=== PATIENT | male | born 1955 ===

== ENCOUNTER 2018-05-28 06:05 | Inpatient (IN) ==
[2018-05-28] MEDS ORDERED: *HR* Succinylcholine 200 MG/10 ML VIAL IVP ONE (06:17)
[2018-05-28] MEDS ORDERED: Ondansetron 4 MG/2 ML VIAL ONE (06:17)
[2018-05-28] MEDS ORDERED: *HR* Rocuronium Bromide 50 MG/5 ML VIAL ONE (06:17)
[2018-05-28] MEDS ORDERED: Lidocaine -MPF 4% 5 ML AMPUL ONE (06:17)
[2018-05-28] MEDS ORDERED: *HR* FentaNYL (PF) 100 MCG/2 ML VIAL ONE (06:17)
[2018-05-28] MEDS ORDERED: CeFAZolin Syr 2,000MG/20 ML 2,000 MG/20 ML SYRINGE IVPB ONE (06:17)
[2018-05-28] MEDS ORDERED: Lidocaine -MPF 2% 2 ML VIAL ONE ×2 (06:17→07:36)
[2018-05-28] MEDS ORDERED: Dexamethasone 4 MG/ML VIAL ONE (06:17)
[2018-05-28] MEDS ORDERED: Propofol 500 MG/50 ML INFUS..BTL ONE (06:18)
[2018-05-28] MEDS ORDERED: *HR* Remifentanil 1 MG VIAL IVP ONE ×2 (06:27→10:03)
[2018-05-28] MEDS ORDERED: Heparin 1,000 UNITS/500 mL 0 ML ONE (06:32)
[2018-05-28] MEDS ORDERED: *HR* Heparin 5,000 UNIT/ML VIAL ONE (06:33)
[2018-05-28] MEDS ORDERED: NiCARdipine 2.5 MG/10 ML Syringe IVPB ONE (06:39)
[2018-05-28] MEDS ORDERED: Nitroglycerin 25 MG/250 ML INFUS..BTL IVC ONE (06:39)
--- NOTE | 2018-05-28 07:14 | History & Physical Report ---
Date of Encounter: 05/28/18 Time of Encounter: 07:10 24 Hour HP Update - Instructions Instructions: If the History and Physical is less than 30 days old and was completed prior to A.M. admission and or procedure and has NOT been updated on calendar day of procedure please complete this update prior to performing procedure. - Update Patient reports changes in Medical Condition: No Changes in examination, assessment, or condition: No Changes in Medication: No Preop tests/diagnostics Reviewed: Yes Surgery Remains Indicated: Yes Consent for Planned Operative Procedure(s) Verified: Yes - Pre-Operative Checklist Preoperative Checklist Indicated: Yes Prophylactic Antibiotic Ordered: Yes (vancomycin due to risk of MRSA) Home Medications Include Beta Robin: No Beta Robin Taken Today (Day of Surgery): No Beta Robin Taken Yesterday (Day Prior to Surgery): No Is VTE Prophylaxis Indicated?: Yes
--- NOTE | 2018-05-28 07:20 | Anesthesia Evaluation PreOp ---
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 Se[address] Lopez - related to "blood clots in head" was on blood thinners; currently on ASA [last dose 05/28/2018 morning]) Other Medical History: Diabetes Type II Anesthesia History: No Prior Anesthetic Complications, Past Anesthesia (BAck surgery, Appy, R knee, Hernia, Saskia, L-thumb) Alcohol Use: occasionally Drug use: none, marijuana Medications and Allergies Ondansetron [Zofran ODT] 8 mg SL Q8H PRN #10 tab 04/18/18 [Rx] Allergy/AdvReac Type Severity Reaction Status Date / Time codeine AdvReac Itching Verified 02/03/15 13:43 morphine AdvReac Nausea Verified 02/03/15 13:42 - Meds/Allergy Pre-op Review Medications Reviewed: Yes Allergies Reviewed: Yes Beta Blockers on Current Med List: No Anesthesia Results - Labs Laboratory Tests 05/26/18 05/26/18 05/26/18 07:24 07:24 07:24 WBC 7.5 Hgb 13.4 Hct 41.2 PT 10.6 INR 0.9 APTT 34.5 Sodium Potassium Chloride Carbon Dioxide BUN Creatinine Est GFR (Non-Af Amer) Est Mean Plasma Glucose 163 Hemoglobin A1c 7.3 H 05/26/18 07:26 WBC Hgb Hct PT INR APTT Sodium 139 Potassium 4.0 Chloride 106 Carbon Dioxide 25 BUN 20 Creatinine 0.81 Est GFR (Non-Af Amer) > 60 Est Mean Plasma Glucose Hemoglobin A1c - Imaging EKG: report reviewed (60bpm - Sinus rhythm Borderline right axis deviation Electronically Signed On 04-20-2018 17:07:31 EST by Anton Rivera) Additional studies: Carotid dopplers 03/25/2018 Findings: Left proximal ICA has a severe, 60-79% stenosis. 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 Shira Gomez MD
[2018-05-28] MEDS ORDERED: Acetaminophen IV 1,000 MG/100 ML INFUS..BTL ONE (07:24)
[2018-05-28] MEDS ORDERED: EPHEDrine 50 MG/ML VIAL ONE (07:26)
[2018-05-28] MEDS ORDERED: Heparin 1,000 UNITS/500 mL 1,000 ML ONE (07:27)
[2018-05-28] MEDS ORDERED: Bupivacaine/EPI 1:200k 0.25%PF 10 ML VIAL INFILT ONE (07:27)
[2018-05-28] MEDS ORDERED: Vancomycin 1,000 MG VIAL ONE (07:28)
[2018-05-28] MEDS ORDERED: *HR* Midazolam HCl 2 MG/2 ML VIAL ONE (07:31)
[2018-05-28] MEDS: Ringers Solution, Lactated 1,000 ML IVC SCH ×2 (07:40→11:52)
[2018-05-28] MEDS ORDERED: Vancomycin 1,000 MG, Sodium Chloride IRRigation 1,000 ML IR ONE (07:45)
[2018-05-28] MEDS ORDERED: Bupivacaine-MPF 0.25% 10 ML VIAL ONE (07:51)
--- NOTE | 2018-05-28 10:42 | Operative Note ---
Date of procedure: 05/28/18 Pre-op diagnosis: Symptomatic 60-79% left internal carotid artery stenosis Post-op diagnosis: same Procedure: Left carotid endarterectomy with Hemashield patch angioplasty Complications: None Anesthesia: GETA Surgeon: Reji Velez Was there an mortgage assistant present: No Estimated blood loss (cc): 50 Specimen: Left carotid plaque Condition: stable Disposition: PACU Procedure in Detail: Indications: The patient is a 62-year-old male with a history of hypertension hyperlipidemia and carotid stenosis. The patient was experiencing left eye amaurosis fugax and was found have a symptomatic 60-79% left internal carotid artery stenosis. Endarterectomy was recommended to reduce his risk of subsequent cerebrovascular accident. Procedure: The patient was identified in the preoperative area. The risks, benefits, and alternatives of the procedure were discussed and all questions were answered. The patient was then taken to the operating room and placed in supine position on the operating table. After the induction of general endotracheal anesthesia, the patient was cleaned and draped in normal sterile fashion. A longitudinal incision was made anterior to the left sternocleidomastoid muscle. Hemostasis was obtained via electrocautery. Through a process of blunt, sharp, and electrocautery dissection, the platysma was traversed and the jugular vein was identified. The facial vein was dissected, clamped, divided and ligated with a 2-0 silk suture ligature. The jugular vein was retracted to expose the carotid bifurcation. The patient received 2000 units of heparin intravenously at this time. Proximal dissection of the common and external carotid arteries were performed circumferentially. Dissection of the internal carotid was performed circumferentially. Vessels loops were passed around the internal and external carotid and an umbilical tape was passed from the common carotid artery. The patient received additional 3000 units of heparin intravenously. After waiting adequate time for the heparin to circulate, the vessels were occluded and a longitudinal arteriotomy was made into the common carotid artery and extended into the internal carotid beyond the plaque. The plaque was long, extended distally and was heavily calcified. Vigorous pulsatile retrograde flow was noted from the internal carotid artery upon release of the vessel loop. Due to the rapid pulsatile retrograde flow, no shunt was placed. A dental Volin was then used to perform a standard endarterectomy. Proximal and distal endpoints were inspected. No elevated flaps were noted. Additional heparin was given th roughout the procedure to maintain adequate anticoagulation. A Hemashield patch was cut to fit the defect and sutured in place with running 6-0 Prolene. Prior to completing the closure, each vessel was flushed and then reoccluded. Heparinized saline was infused into the lumen. The patch was completed. Flow was restored in the external carotid artery, followed the common carotid artery, lastly the internal carotid artery was opened. A low resistance arterialized signal was present within the internal carotid artery beyond the patch. Thrombin and Gelfoam were used to aid in hemostasis. Meticulous hemostasis was obtained throughout the wound with electrocautery. Platelet rich and platelet poor plasma were infused into the wounds. The sternocleidomastoid was reapproximated with interrupted 3-0 Vicryl. Platelet rich and platelet poor plasma were infused into the wound. A TLS drain was brought through a separate stab incision and sutured in place with 0 silk suture. The platysma was reapproximated with running 3-0 Vicryl. Local anesthetic was infused in the skin. A 3-0 Monocryl was used to reapproximate the skin. A sterile dressing was applied. The patient was extubated, taken to the recovery room in stable condition.
[2018-05-28] MEDS ORDERED: Ondansetron 4 MG/2 ML VIAL IVP PRN (12:51)
[2018-05-28] MEDS ORDERED: D5% in Water 1,000 ML IVC PRN (12:51)
[2018-05-28] MEDS ORDERED: Naloxone 0.4 MG/ML INJ IVP PRN (12:51)
[2018-05-28] MEDS ORDERED: Acetaminophen 325 MG TABLET PO PRN (12:51)
[2018-05-28] MEDS ORDERED: *HR* Labetalol 20 MG/4 ML SYRINGE IVP PRN (12:51)
[2018-05-28] MEDS ORDERED: Dextrose Gel 15 GM/37.5 ML TUBE PO PRN ×2 (12:51)
[2018-05-28] MEDS ORDERED: ALPRAZolam 0.5 MG TABLET PO PRN (12:51)
[2018-05-28] MEDS ORDERED: 0.9 % Sodium Chloride 1,000 ML IVC SCH (12:51)
[2018-05-28] MEDS ORDERED: *HR* Dextrose 50 % in Water (Syg) 50 ML SYRINGE IVP PRN (12:51)
[2018-05-28] MEDS ORDERED: OXYCODONE Oral CONC 10 MG/0.5 ML ORAL.SYG SL PRN ×2 (12:51)
[2018-05-28] MEDS: Insulin LISPRO 300 UNITS/3 ML VIAL SQ SCH ×2 (13:25→16:36)
[2018-05-28] MEDS: *HR* Metoprolol 5 MG/5 ML VIAL IVP SCH ×3 (13:25→23:34)
[2018-05-28] MEDS: *HR* HYDROcodone/Acet 5/325 mg TABLET PO PRN (13:32)
[2018-05-28] MEDS ORDERED: Vancomycin 0 MG in D5% in Water 250 ML IVPB ONE (18:30)
--- NOTE | 2018-05-28 19:35 | Electrocardiograph Report ---
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
[2018-05-28] MEDS: *HR* OxyCODONE Immed Rel 5 MG TABLET PO PRN (20:23)
[2018-05-28] MEDS ORDERED: Latanoprost 2.5 ML BOTTLE BOTH EYES SCH (21:00)
[2018-05-28] MEDS ORDERED: Insulin LISPRO 300 UNITS/3 ML VIAL SQ SCH (21:00)
[2018-05-29] MEDS: *HR* Metoprolol 5 MG/5 ML VIAL IVP SCH (05:24)
[2018-05-29] MEDS: *HR* OxyCODONE Immed Rel 5 MG TABLET PO PRN ×2 (05:25→10:52)
[2018-05-29] MEDS ORDERED: *HR* Heparin 5,000 UNIT/ML VIAL SQ SCH (06:00)
--- NOTE | 2018-05-29 07:14 | Discharge Summary ---
Orders not resulted at time of discharge: Pending orders 05/27/18 Red Blood Cells [BBK] Routine 05/28/18 10:14 Surgical Pathology [PTH] Routine Date of Encounter: 05/29/18 Time of Encounter: 07:50 - Discharge Diagnosis (1) Carotid stenosis, left Priority: Primary Status: Chronic Comments: The patient is postoperative day #1 after a left carotid endarterectomy. His incision is healing well. He is tolerating a diet. He has no neurologic deficits. He will be discharged today. (2) Essential hypertension Priority: Secondary Status: Chronic (3) Mixed hyperlipidemia Priority: Secondary Status: Chronic (4) Type 2 diabetes mellitus with other circulatory complications Priority: Secondary Status: Chronic - Hospital Course Hospital course: Mr. Khalil is a 62 year old male with a history of hypertension, hyperlipidemia and diabetes. He also is found have symptomatic left internal carotid artery stenosis. He was admitted on 05/28/2018 and he underwent a left carotid endarterectomy. He tolerated the procedure well. On postoperative day #1 he was tolerating a diet and had no neurologic deficits. His incision was healing well. He was discharged on postoperative day #1 stable condition without complications. - Time Spent with Patient Total time spent providing and/or coordinating discharge services: - Discharge Medications Prescriptions: HYDROcodone/Acet 5/325 mg [Combes 5-325 mg] 1 tab PO Q6HR PRN 3 Days #12 tablet PRN Reason: Moderate Pain Home Medications: ALPRAZolam [Xanax 0.5 MG Tablet] 0.5 mg PO BID PRN 05/28/18 [History] Albuterol Sulfate [Ventolin Hfa] 2 puff PO Q6H PRN 05/28/18 [History] Cholecalciferol (Vitamin D3) [Vitamin D3] 4,000 unit PO 05/28/18 [History] Esomeprazole Magnesium [Nexium] 40 mg PO DAILY 05/28/18 [History] Gemfibrozil 600 mg PO BID 05/28/18 [History] Ibuprofen [Motrin] 600 mg PO TID PRN 05/28/18 [History] Latanoprost [Xalatan] 1 drop BOTH EYES HS 05/28/18 [History] Losartan Potassium 50 mg PO DAILY 05/28/18 [History] Metformin HCl [Glumetza] 1,000 mg PO BID 05/28/18 [History] Tramadol HCl/Acetaminophen [Ultracet Tablet] 1 each PO Q6H PRN 05/28/18 [History] Gemfibrozil [Lopid] 600 mg PO BIDWM tablet 05/29/18 [Rx] HYDROcodone/Acet 5/325 mg [Combes 5-325 mg] 1 tab PO Q6HR PRN 3 Days #12 tablet 05/29/18 [Rx] Allergies/Adverse Reactions: Allergy/AdvReac Type Severity Reaction Status Date / Time codeine AdvReac Itching Verified 02/03/15 13:43 morphine AdvReac Nausea Verified 02/03/15 13:42 Date of admission: 05/28/18 12:50 Primary care physician: Joselo Jerez MD Procedure(s) Performed: Left carotid endarterectomy Discharging clinician: Reji Velez Anticipated date of discharge: 05/29/18 Exam Vital Signs, Last 4 Hours Temp Pulse Resp BP Pulse Ox 05/29/18 04:06 98.5 F 61 18 121/68 95 General: Present: Conversant HEENT: Present: Trachea midline, Pupils equal Neck: Present: Other (Incision clean, dry and intact without erythema or drainage, no pulsatile mass, no hematoma.) Cardiac: Present: Reg Rate and Rhythm Lungs: Present: Normal Breath Sounds Neuro: Present: Alert and responsive, Motor nerves grossly intact, Sensory nerves grossly intact Abdomen: Present: Soft Vascular: Absent: Cyanosis, Edema Skin: Present: No rashes noted on visualized skin - Patient Status Disposition: Home, Self-Care Condition: Good Functional capacity at discharge: independent ambulation Overall status at discharge: patient is back to baseline - Discharge Instructions Follow Up With: Reji Velez MD [Partnered Physician] - 06/16/18 2:40 pm Joselo Jerez MD [Primary Care Provider] - 06/03/18 9:15 am Additional Instructions: May remove bandage and shower on 05/30/2018. Wash wound gently and pat to dry. No driving for [address] Velez at [phone] with questions or concerns. - Diet and Activity Activity: increase activity as tolerated Diet: advance to your usual diet
[2018-05-29 07:16] VITALS: BP 121/45
[2018-05-29] MEDS: Insulin LISPRO 300 UNITS/3 ML VIAL SQ SCH (07:33)
[2018-05-29] MEDS: *HR* HYDROcodone/Acet 5/325 mg TABLET PO PRN (07:39)
== END 2018-05-29 12:25 | disposition home or self-care (01) | DRG 39 ==
LOC: SAMDAY 06:05 → 2NNU 12:50
PROVIDERS: ADMIT Surgery; ATTEND Surgery

== ENCOUNTER 2019-01-14 09:48 | Inpatient (IN) ==
[2019-01-14] MEDS ORDERED: CeFAZolin Syr 2,000MG/20 ML 2,000 MG/20 ML SYRINGE IVPB ONE (10:05)
[2019-01-14] MEDS ORDERED: Ringers Solution, Lactated 1,000 ML IVC SCH (10:15)
[2019-01-14] MEDS ORDERED: Albuterol 2.5 MG/3 ML NEBULIZER IH ONE ×2 (10:38→12:16)
--- NOTE | 2019-01-14 10:56 | History & Physical Report ---
Date of Encounter: 01/14/19 Time of Encounter: 10:50 24 Hour HP Update - Instructions Instructions: If the History and Physical is less than 30 days old and was completed prior to A.M. admission and or procedure and has NOT been updated on calendar day of procedure please complete this update prior to performing procedure. - Update Patient reports changes in Medical Condition: No Changes in examination, assessment, or condition: No Changes in Medication: No Preop tests/diagnostics Reviewed: Yes Surgery Remains Indicated: Yes Consent for Planned Operative Procedure(s) Verified: Yes - Pre-Operative Checklist Preoperative Checklist Indicated: Yes Prophylactic Antibiotic Ordered: Yes (surgical prophylaxis with risk of MRSA) Home Medications Include Beta Robin: No Beta Robin Taken Today (Day of Surgery): No Beta Robin Taken Yesterday (Day Prior to Surgery): No Is VTE Prophylaxis Indicated?: Yes
[2019-01-14] MEDS ORDERED: Vancomycin 1,000 MG, Sodium Chloride IRRigation 1,000 ML IR ONE (12:00)
--- NOTE | 2019-01-14 12:04 | Anesthesia Evaluation PreOp ---
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 in 2015 no deficits and now s/p L CEA), Other (anxiety, depression) Other Medical History: Diabetes Type II, GERD Anesthesia History: No Prior Anesthetic Complications, Past Anesthesia (BAck surgery, Appy, R knee, Hernia, Saskia, L-thumb, L CEA) Alcohol Use: none Drug use: none Medications and Allergies ALPRAZolam [Xanax 0.5 MG Tablet] 0.5 mg PO BID PRN 05/28/18 [History] Albuterol Sulfate [Ventolin Hfa] 2 puff PO Q6H PRN 05/28/18 [History] Esomeprazole Magnesium [Nexium] 40 mg PO DAILY 05/28/18 [History] Metformin HCl [Glumetza] 1,000 mg PO BID 05/28/18 [History] Tramadol HCl/Acetaminophen [Ultracet Tablet] 1 tab PO BID PRN 05/28/18 [History] Gemfibrozil [Lopid] 600 mg PO BIDWM tablet 05/29/18 [Rx] Benzonatate [Tessalon] 100 mg PO TID PRN #12 capsule 01/10/19 [Rx] Aspirin [Adult Aspirin] 81 mg PO DAILY 01/14/19 [History] Cholecalciferol (D-3) [Vitamin D] 5,000 unit PO DAILY 01/14/19 [History] Losartan Potassium [Cozaar] 50 mg PO DAILY 01/14/19 [History] Rosuvastatin [Crestor] 40 mg PO HS 01/14/19 [History] Allergy/AdvReac Type Severity Reaction Status Date / Time codeine AdvReac Itching Verified 01/14/19 10:22 morphine AdvReac Nausea Verified 01/14/19 10:22 - Meds/Allergy Pre-op Review Medications Reviewed: Yes Allergies Reviewed: Yes Beta Blockers on Current Med List: No Anesthesia Results - Labs Laboratory Tests 01/12/19 01/12/19 01/12/19 15:26 15:26 15:26 WBC 9.0 Hgb 12.6 L Hct 40.5 Plt Count 402 H PT 11.9 INR 1.0 APTT 35.5 Sodium 142 Potassium 3.5 Chloride 103 Carbon Dioxide 29 BUN 22 Creatinine 0.78 Est GFR (Non-Af Amer) > 60 - Imaging EKG: report reviewed Additional studies: stress 03/2018 Impression: Exercise ECG is negative for ischemia. Chest discomfort reported during exercise. Gated EF = 74%. Perfusion imaging was negative for ischemia or infarct. 12/2018 CT/CT angio abdomen pelvis IMPRESSION: 1. 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 Associated hematoma surrounding the pseudoaneurysm measuring 2.7 x 3.6 x 2.6 cm. Vascular surgery consultation recommended. 2. Moderate aortoiliac atherosclerotic disease. No other acute vascular pathology. 3. Spontaneous portosystemic shunt as outlined above. This appears relatively stable compared to previous imaging. 4. Otherwise stable CT of the abdomen and pelvis. Anesthesia Exam Vital Signs/O2 Sat/Glucose, Most Recent Temp Pulse Resp BP Pulse Ox 98.2 F 92 18 125/84 95 01/14/19 10:20 01/14/19 10:20 01/14/19 10:20 01/14/19 10:20 01/14/19 10:20 Blood Glucose* 136 Weight: 84 kg NPO (# of Hours): > 8 hr - HEENT Pupil (Motor): Pupils equal Mallampati: II Teeth: Edentulous Oral Opening: Greater than 3 - POWDER CORE TESTER LOC: Oriented - Cardiac Rhythm: Regular Murmur: None - Pulmonary Breath Sounds: bilateral Clear Respiratory Effort: Symmetrical Anesthesia Assess/Plan ASA Score: 3 Level of consciousness: Cooperative, Oriented Anesthetic Plan: General Monitoring Plan: Standard Monitors Recovery Plan: PACU
[2019-01-14] MEDS ORDERED: *HR* OxyCODONE Immed Rel 5 MG TABLET PO PRN (12:16)
[2019-01-14] MEDS ORDERED: *HR* Promethazine 25 MG/ML VIAL IVP PRN ×2 (12:16→16:30)
[2019-01-14] MEDS ORDERED: *HR* HYDROmorphone (PF) 1 MG/ML SYRINGE IVP PRN (12:16)
[2019-01-14] MEDS ORDERED: Ondansetron 4 MG/2 ML VIAL IVP ONE (12:16)
[2019-01-14] MEDS ORDERED: *HR* Labetalol 20 MG/4 ML SYRINGE IVP PRN (12:16)
[2019-01-14] MEDS ORDERED: Acetaminophen IV 1,000 MG/100 ML INFUS..BTL IVPB ONE (12:17)
[2019-01-14] MEDS ORDERED: Famotidine 20 MG/2 ML VIAL IVP ONE (12:17)
[2019-01-14] MEDS ORDERED: Heparin 1,000 UNITS/500 mL 1,000 ML ONE (13:42)
[2019-01-14] MEDS ORDERED: Bupivacaine-MPF 0.25% 10 ML VIAL ONE (13:42)
[2019-01-14] MEDS ORDERED: Isovue-300 150 ML INFUS..BTL ONE (13:43)
[2019-01-14] MEDS ORDERED: *HR* Propofol 200 MG/20 ML VIAL IVP ONE (14:36)
[2019-01-14] MEDS ORDERED: Lidocaine -MPF 2% 2 ML VIAL ONE (14:36)
[2019-01-14] MEDS ORDERED: *HR* FentaNYL (PF) 100 MCG/2 ML VIAL ONE (14:36)
[2019-01-14] MEDS ORDERED: *HR* Rocuronium Bromide 50 MG/5 ML VIAL ONE (14:36)
[2019-01-14] MEDS ORDERED: *HR* Midazolam HCl 2 MG/2 ML VIAL ONE (14:36)
[2019-01-14] MEDS ORDERED: Ondansetron 4 MG/2 ML VIAL ONE (15:13)
[2019-01-14] MEDS ORDERED: Dexamethasone 4 MG/ML VIAL ONE (15:13)
--- NOTE | 2019-01-14 15:27 | Operative Note ---
Date of procedure: 01/14/19 Pre-op diagnosis: Symptomatic right common iliac artery aneurysm Post-op diagnosis: same Procedure: 1. Abdominal aortogram and right iliac artery angiogram 2. Percutaneous endovascular repair of right common iliac artery aneurysm with 8 x 59 mm atrium covered stent, postdilated with 10 x 40 mm balloon. Complications: None Anesthesia: GETA Surgeon: Reji Velez Was there an temporary administrative assistant present: No Estimated blood loss (cc): 1 Specimen: None Condition: stable Disposition: PACU Procedure in Detail: Indications: The patient is a 63-year-old male with a history of carotid stenosis, hypertension, hyperlipidemia and diabetes. The patient presented to the emergency room recently with complaints of pelvic pain. He reported this pain began approximately 1 month ago. Patient was found to have a right common iliac artery pseudoaneurysm with the hematoma. Repair was recommended to reduce his risk of hemorrhage and . Please: The patient was identified in the preoperative area. The risks, benefits and alternatives were discussed and all questions were answered. He expressed understanding and wished to proceed. The patient was then taken to the operating room. He was placed in the supine position on the operative table. After the induction of general endotracheal anesthesia he was cleaned and draped in normal sterile fashion. Under ultrasound guidance, percutaneous access of the right common femoral artery was obtained with a micropuncture needle. A microwire was advanced through the needle. The micropuncture needle was removed. A 4-British micropuncture sheath was advanced over the wire. The microwire was removed.. A Bentson wire was advanced through the needle into the infrarenal aorta under fluoroscopic view. The needle was exchanged for a 6-British sheath. An arteriogram was then performed through the sheath. This revealed a pseudoaneurysm with active bleeding arising from the right common iliac artery. The Bentson wire was placed with a Magic torque wire. Another angiogram was performed in order to size the artery. An 8 x 59 mm atrium covered stent was advanced over the wire. It was then deployed across the common iliac artery over the pseudoaneurysm. An angiogram was then performed through the sheath which revealed continued extravasation of the pseudoaneurysm. A 10 x 40 mm balloon was advanced over the wire. The covered stent was postdilated to 10 mm. The balloon was removed and a completion angiogram revealed resolution of the pseudoaneurysm and appropriate wall apposition of the stent. The sheath was removed and a Starclose device was deployed to aid in hemostasis. Additional hemostasis was obtained with direct pressure. A sterile dressing was applied. The patient was extubated and was taken to the recovery room in stable condition.
--- NOTE | 2019-01-14 15:52 | Anesthesia Evaluation Post Op ---
Date of Encounter: 01/14/19 Time of Encounter: 15:51 - Vital Signs Vital Signs: Vital Signs/O2 Sat, Most Current Temp Pulse Resp BP Pulse Ox 99.7 F H 88 20 138/89 96 01/14/19 15:22 01/14/19 15:42 01/14/19 15:42 01/14/19 15:42 01/14/19 15:42 - Lungs Lungs: Clear Ascult./Percussion - Airway Airway: Non-obstructed - Cardiovascular Regular Rate - Mental Status Mental Status: Alert & Oriented, Answers Appropriately - Pain Pain Scale: 0 Pain Scale used: Numeric (1 - 10) - Nausea Vomiting Nausea Vomiting: Not Present - Hydration Hydration: Ice chips, Has not voided - Discharge PostOp Status: Transfer Patient to floor
[2019-01-14] MEDS ORDERED: Dextrose Gel 15 GM/37.5 ML TUBE PO PRN ×2 (16:30)
[2019-01-14] MEDS ORDERED: Naloxone 0.4 MG/ML INJ IVP PRN (16:30)
[2019-01-14] MEDS ORDERED: Insulin LISPRO 300 UNITS/3 ML VIAL SQ SCH ×2 (16:30→21:00)
[2019-01-14] MEDS ORDERED: Benzonatate 100 MG CAPSULE PO PRN (16:30)
[2019-01-14] MEDS ORDERED: traMADol 50 MG TABLET PO PRN (16:30)
[2019-01-14] MEDS ORDERED: D5% in Water 1,000 ML IVC PRN (16:30)
[2019-01-14] MEDS ORDERED: *HR* Dextrose 50 % in Water (Syg) 50 ML SYRINGE IVP PRN (16:30)
[2019-01-14] MEDS: ALPRAZolam 0.5 MG TABLET PO PRN (20:50)
[2019-01-15] MEDS ORDERED: *HR* Heparin 5,000 UNIT/ML VIAL SQ SCH (06:00)
[2019-01-15 06:31] LABS: Basophils % 0.2 %; Eosinophils % 0.2 %; Hematocrit 36.5 % (37.5-50.1); Hemoglobin 11.5 g/dL (12.9-16.9); Immature Granulocytes % 0.7 % (0-4); Lymphocytes # 1.6 K/mcL (0.6-4.6); Lymphocytes % 12.9 %; Mean Corpuscular HGB Conc 31.5 g/dL (31.6-35.5); Mean Corpuscular Hemoglobin 25.3 pg (28.0-33.3); Mean Corpuscular Volume 80.4 fL (83.0-100.0); Mean Platelet Volume 10.8 fL (9.4-12.4); Monocytes # 0.5 K/mcL (0.0-1.3); Monocytes % 4.4 %; Neutrophils # 10.1 K/mcL (1.6-8.9); Platelet Count 359 K/mcL (140-400); Red Blood Count 4.54 M/mcL (4.19-5.50); Red Cell Distribution Width 13.8 % (11.5-14.5); Segmented Neutrophils % 81.6 %; White Blood Count 12.3 K/mcL (4.3-11.1)
[2019-01-15 06:54] LABS: BUN/Creatinine Ratio 21 (6-26); Blood Urea Nitrogen 14 mg/dL (8-23); Calcium 9.1 mg/dL (8.6-10.3); Carbon Dioxide 29 mEq/L (23-29); Chloride 99 mEq/L (98-107); Glucose 144 mg/dL (70-105); Osmolality,Calculated 291 (280-300); Potassium 3.7 mEq/L (3.5-5.1); Sodium 139 mEq/L (136-145); eGFR For African Americans > 60 (> 60); eGFR For Non-African Americans > 60 (> 60)
--- NOTE | 2019-01-15 07:44 | Discharge Summary ---
Date of Encounter: 01/15/19 Time of Encounter: 07:50 - Discharge Diagnosis (1) Iliac artery pseudoaneurysm Priority: Primary Status: Inactive Comments: The patient is postoperative day #1 after endovascular repair of a ruptured right common iliac artery aneurysm. He reports his pain is resolved. His wound revealed no evidence of hematoma. His palpable pedal pulses. He will be discharged today. (2) Essential hypertension Priority: Secondary Status: Chronic Comments: The patient was counseled regarding atherosclerotic risk factor reduction. (3) Mixed hyperlipidemia Priority: Secondary Status: Chronic (4) Type 2 diabetes mellitus with other circulatory complications Priority: Secondary Status: Chronic (5) Carotid stenosis, left Priority: Secondary Status: Chronic - Hospital Course Hospital course: Mr. Khalil is a 63 year old male with a history of hypertension, hyp erlipidemia and diabetes who was found to have a ruptured right common iliac artery aneurysm with a resultant hematoma. The patient was admitted and taken to the operating room where he underwent endovascular repair of the right common iliac artery aneurysm. He tolerated the procedure well. Will certainly #1 is healing well. Symptoms are completely resolved. He was discharged on postoperative day #1 in stable condition without complications. - Time Spent with Patient Total time spent providing and/or coordinating discharge services: - Discharge Medications Prescriptions: New Clopidogrel [Plavix] 75 mg PO DAILY #30 tablet Continued Albuterol Sulfate [Ventolin Hfa] 2 puff PO Q6H PRN PRN Reason: Shortness Of Breath ALPRAZolam [Xanax 0.5 MG Tablet] 0.5 mg PO BID PRN PRN Reason: Anxiety Esomeprazole Magnesium [Nexium] 40 mg PO DAILY Metformin HCl [Glumetza] 1,000 mg PO BID Tramadol HCl/Acetaminophen [Ultracet Tablet] 1 tab PO BID PRN PRN Reason: Mild To Moderate Pain Gemfibrozil [Lopid] 600 mg PO BIDWM tablet Benzonatate [Tessalon] 100 mg PO TID PRN #12 capsule PRN Reason: Cough Aspirin [Adult Aspirin] 81 mg PO DAILY Cholecalciferol (D-3) [Vitamin D] 5,000 unit PO DAILY Losartan Potassium [Cozaar] 50 mg PO DAILY Rosuvastatin [Crestor] 40 mg PO HS Home Medications: ALPRAZolam [Xanax 0.5 MG Tablet] 0.5 mg PO BID PRN 05/28/18 [History] Albuterol Sulfate [Ventolin Hfa] 2 puff PO Q6H PRN 05/28/18 [History] Esomeprazole Magnesium [Nexium] 40 mg PO DAILY 05/28/18 [History] Metformin HCl [Glumetza] 1,000 mg PO BID 05/28/18 [History] Tramadol HCl/Acetaminophen [Ultracet Tablet] 1 tab PO BID PRN 05/28/18 [History] Gemfibrozil [Lopid] 600 mg PO BIDWM tablet 05/29/18 [Rx] Benzonatate [Tessalon] 100 mg PO TID PRN #12 capsule 01/10/19 [Rx] Aspirin [Adult Aspirin] 81 mg PO DAILY 01/14/19 [History] Cholecalciferol (D-3) [Vitamin D] 5,000 unit PO DAILY 01/14/19 [History] Losartan Potassium [Cozaar] 50 mg PO DAILY 01/14/19 [History] Rosuvastatin [Crestor] 40 mg PO HS 01/14/19 [History] Clopidogrel [Plavix] 75 mg PO DAILY #30 tablet 01/15/19 [Rx] Allergies/Adverse Reactions: Allergy/AdvReac Type Severity Reaction Status Date / Time codeine AdvReac Itching Verified 01/14/19 10:22 morphine AdvReac Nausea Verified 01/14/19 10:22 Date of admission: 01/14/19 16:21 Primary care physician: Joselo Jerez MD Consults: 01/14/19 17:27 Consult to Nutrition [CONS] Routine Comment: Consulting Provider: NUTRITION Reason for Dietary Consult: MST Score Procedure(s) Performed: Endograft repair of ruptured right iliac artery aneurysm Discharging clinician: Reji Velez Anticipated date of discharge: 01/15/19 Exam Vital Signs, Last 4 Hours Temp Pulse Resp BP Pulse Ox 01/15/19 03:58 98.5 F 82 16 129/85 92 General: Present: Conversant HEENT: Present: Pupils equal Cardiac: Present: Reg Rate and Rhythm Lungs: Present: Normal Breath Sounds Neuro: Present: Alert and responsive, No focal deficits noted Abdomen: Present: Soft, Non-tender Vascular: Present: Normal capillary refill, Pulse, normal, Other (No hematoma). Absent: Cyanosis, Edema Skin: Present: No rashes noted on visualized skin - Patient Status Disposition: Home, Self-Care Condition: Good Functional capacity at discharge: independent ambulation Overall status at discharge: patient is back to baseline - Discharge Instructions Instructions: Clopidogrel (By mouth), Angiogram (DC), Peripheral Vascular Disorders (DC) Follow Up With: Reji Velez MD [Partnered Physician] - 02/15/19 9:50 am Joselo Jerez MD [Primary Care Provider] - 01/19/19 9:15 am (Appointment for 01-15-19 @ 08 has been cancelled) Additional Instructions: RISK FACTORS: STOP SMOKING: If you smoke, STOP. Smoking or tobacco use significantly increases your risk of vascular disease because nicotine causes the arteries to narrow or constrict. It also causes fats to stick to the artery. Your chances of having vascular problems are greatly increased if you continue to smoke. For more information, call the education line for smoking cessation 3-564-QCTUPZO EAT A LOW FAT/CHOLESTEROL/SODIUM DIET: This diet may help reduce your chances of having vascular problems. LIFTING: Avoid lifting anything more than 10 pounds for 5-7 days Prior to straining, laughing, sneezing and/or coughing, apply manual pressure directly over insertion site. ACTIVITY: You may walk or climb stairs as tolerated You can resume sexual activity as tolerated In general, you are encouraged to engage in physical activity, such as walking, 20 minutes twice a day. BATHING Do not submerge the site into water (bath tub, hot tub, swimming pool) for 1 week. This can be a source for infection into the blood stream. You may shower after 24 hours SITE CARE: After 24 hours, you may remove the dressing and leave the site open to air. Keep the site clean and dry. Clean gently and pat dry. You can expect bruising and tenderness that gradually resolve within a week or two. Return to work as instructed per your physician Resume driving as instructed per physician Keep all scheduled follow up appointments Resume medications as instructed IMPORTANT: If prescribed a Platelet Aggregation Inhibitor such as, Plavix, Brilinta or Effient: Duration of therapy is minimum 3 months These medications are often used in combination with Aspirin Never discontinue unless advised by your Vascular Surgeon. STROKE (CVA) Risk factors for a stroke are: Age, cigarette smoking, diabetes, excessive alcohol consumption, family history, high blood pressure, overweight, physical inactivity, prior stroke, heart attack, carotid artery disease or other artery disease. Warning signs: Sudden numbness or weakness of the face, arm or leg; especially on one side of the body, sudden confusion, trouble speaking or understanding, sudden trouble seeing in one eye, sudden trouble walking, dizziness, loss of balance or coordination, sudden severe headache with no cause. Call 911 or go to the Emergency Room. BLEEDING: Although the risk of bleeding is minimal, it can happen. If you have any bleeding from the site, apply firm pressure above the puncture site for 10-15 minutes. If the bleeding does not stop, continue manual pressure and call 911 Contact your physician if: You develop a fever greater than 101 degrees Fahrenheit Your site becomes reddened or has any drainage You have an increase in pain or burning at the site or if a large knot forms at the site. - Diet and Activity Activity: increase activity as tolerated Diet: advance to your usual diet
[2019-01-15 08:15] VITALS: BP 126/82
[2019-01-15] MEDS ORDERED: Aspirin Enteric Coated 81 MG Tablet PO SCH (09:00)
[2019-01-15] MEDS ORDERED: Cholecalciferol (D-3) 1,000 UNIT (25MCG) TABLET PO SCH (09:00)
[2019-01-15] MEDS: ALPRAZolam 0.5 MG TABLET PO PRN (09:43)
== END 2019-01-15 10:31 | disposition home or self-care (01) | DRG 272 ==
LOC: SAMDAY 09:48 → 2NENU 16:21
PROVIDERS: ADMIT Surgery; ATTEND Surgery

== ENCOUNTER 2019-01-28 11:56 | Inpatient (IN) ==
[2019-01-28] MEDS ORDERED: 0.9 % Sodium Chloride 1,000 ML IVC ONE (12:15)
--- NOTE | 2019-01-28 12:58 | Emergency Department Note ---
Disposition Clinical Impression: Salmonella bacteremia Chest pain Qualifiers: Chest pain type: unspecified Qualified Code(s): R07.9 - Chest pain, unspecified Anemia Qualifiers: Anemia type: unspecified type Qualified Code(s): D64.9 - Anemia, unspecified Disposition: Admitted As Inpatient Condition: Fair Time of Disposition: 14:39 General Adult HPI - General Chief complaint: ED Chest Pain Stated complaint: Chest Pain Time Seen by Provider: 01/28/19 12:07 Source: patient, family, EMS Limitations: no limitations Nursing Notes Reviewed: Yes Vital Signs Reviewed: Yes - History of Present Illness HPI Narrative: Patient presents per EMS and I did see the patient immediately upon arrival and I did speak with the paramedics and the patient is here with chest pain which began at about 10:15 a day and is intermittent lasting 2-3 minutes at a time and sharp and is worse with exertion and associated with diaphoresis and dyspnea. tells me that the patient was recently seen here and I did review his previous record was diagnosed with salmonella in the blood and discharged on Bactrim and the patient today continues to complain of diarrhea. No vomiting. Does have blood in the stool. No fever. No pain or swelling of the lower extremities but said he is unsteady on his feet. Paramedics that he was very tachycardic. Social history: Stopped smoking 1996, no alcohol or drugs Pain Scale: 9 - Related Data Home Medications Medication Instructions Recorded Confirmed ALPRAZolam [Xanax 0.5 MG Tablet] 0.5 mg PO BID PRN 05/28/18 01/28/19 Albuterol Sulfate [Ventolin Hfa] 2 puff PO Q6H PRN 05/28/18 01/28/19 Esomeprazole Magnesium [Nexium] 40 mg PO DAILY 05/28/18 01/28/19 Metformin HCl [Glumetza] 1,000 mg PO BID 05/28/18 01/28/19 Tramadol HCl/Acetaminophen 1 tab PO BID PRN 05/28/18 01/28/19 [Ultracet Tablet] Aspirin [Adult Aspirin] 81 mg PO DAILY 01/14/19 01/28/19 Cholecalciferol (D-3) [Vitamin D] 5,000 unit PO DAILY 01/14/19 01/28/19 Losartan Potassium [Cozaar] 50 mg PO DAILY 01/14/19 01/28/19 Rosuvastatin [Crestor] 40 mg PO HS 01/14/19 01/28/19 Ondansetron HCl [Zofran] 4 mg PO Q8HR PRN 01/28/19 01/28/19 Previous Rx's Medication Instructions Recorded Gemfibrozil [Lopid] 600 mg PO BIDWM tablet 05/29/18 Benzonatate [Tessalon] 100 mg PO TID PRN #12 capsule 01/10/19 Clopidogrel [Plavix] 75 mg PO DAILY #30 tablet 01/15/19 Allergies Allergy/AdvReac Type Severity Reaction Status Date / Time codeine AdvReac Itching Verified 01/26/19 18:06 morphine AdvReac Nausea Verified 01/26/19 18:06 All systems ED: reviewed and negative except as stated. Past Medical History - Past Medical History Medical history: Reports: arthritis, CVA, DVT, diabetes, GERD, glaucoma, hypertension Surgical history: Reports: appendectomy Psychiatric history: Reports: anxiety, depression - Social History Smoking Status: Former smoker Smokeless Tobacco Status: No Alcohol use: Reports: none Drug use: Reports: none Physical Exam CONSTITUTIONAL: Alert and oriented X3, well-nourished, well appearing, in no apparent distress HEAD: Normocephalic; atraumatic. EYES: PERRL, no scleral icterus. NOSE: The nose is normal in appearance without rhinorrhea RESP: Normal chest excursion with respiration; breath sounds clear and equal bilaterally; no wheezes, rhonchi, or rales CARD: Regular rhythm, without murmurs, rub or gallop ABD: Non-distended; mild bilateral lower abdominal discomfort with palpation but soft without rigidity, rebound, guarding. Normal appearance. The upper abdomen is non-tender, soft,without rigidity, rebound or guarding SKIN: Normal for age and race; warm and dry; no apparent lesions EXTREMITIES: Pulses are 2 plus and equal times 4 extremities, no peripheral edema or calf muscle pain. - General Limitations: no limitations General appearance: alert Course Vital Signs Temperature 98.3 F 01/28/19 12:00 Pulse Rate 126 01/28/19 12:00 Respiratory Rate 20 01/28/19 12:00 Blood Pressure 133/93 01/28/19 12:00 O2 Sat by Pulse Oximetry 100 01/28/19 12:00 Temperature 98.3 F 01/28/19 12:00 Pulse Rate 105 01/28/19 16:00 Respiratory Rate 18 01/28/19 16:00 Blood Pressure 135/91 01/28/19 16:00 O2 Sat by Pulse Oximetry 98 01/28/19 16:00 Oxygen Delivery Oxygen Delivery Room Air Medical Decision Making - MDM Narrative Medical decision making narrative: Patient does have Salmonella bacteremia and I did write for IV fluids because he is significantly tachycardic and did an EKG which shows sinus tachycardia with a rate of 118 bpm with some nonspecific ST changes and the patient will be admitted and labs including troponin are pending. Chest x-rays negative. 1 L IV fluid bolus. I did go back and check on the patient and his symptoms have improved but not resolved. 1257 Did review the patient's test results he does have anemia which is a 3 g drop from January 25 so I did write for type and screen, I did speak with Dr. Garza from infectious disease who recommends Rocephin 2 g IV every 24 hours I did turn in the consult as well as I also wrote for the Rocephin. The hospitalist is amalia Also cardio was paged but the second EKG with continued chest pain shows improvement in the tachycardia and shows sinus tachycardia with rate of [address] change similar to previous EKG but without acute ST elevation or arrhythmia. Cardiology will be consulted. 1405 I did speak with Dr. Alford from cardiology who will consult and agrees with evaluation for pulmonary embolism, dissection as well as further evaluation of the right iliac artery repair and this will be a CTA of the chest abdomen and pelvis and the patient will be admitted. Hospitalist has been paged [phone] I did review the results of the CT scan which did not show any bleeding from the iliac artery aneurysm repair, no pulmonary embolism or dissection. Dr. Alford who did recommend I contacted vascular and I will call Dr. Cuenca right now. No change in management at this time based on CT result findings. 1703 I did speak with Dr. Tariq and he does know the patient well and we discussed the findings and hemoglobin and the CT results and he feels he does not need consult at this time but is happy to help out if the inpatient team like to consult. 1709 - Medical Records Medical records reviewed: Yes I reviewed the patient's medical records. - Lab Data Lab results reviewed: Yes I reviewed the patient's lab results. Result diagrams: 01/28/19 12:46 01/28/19 12:46 Lab Results 01/28/19 01/28/19 01/28/19 Range/Units 12:37 12:46 12:46 WBC (4.3-11.1) K/mcL RBC (4.19-5.50) M/mcL Hgb (12.9-16.9) g/dL Hct (37.5-50.1) % MCV (83.0-100.0) fL MCH (28.0-33.3) pg MCHC (31.6-35.5) g/dL RDW (11.5-14.5) % Plt Count (140-400) K/mcL MPV (9.4-12.4) fL Immature Gran % (0-4) % Seg Neutrophils % % Lymphocytes % % Monocytes % % Eosinophils % % Basophils % % Neutrophils # (1.6-8.9) K/mcL Lymphocytes # (0.6-4.6) K/mcL Monocytes # (0.0-1.3) K/mcL Eosinophils # (0.0-0.6) K/mcL Basophils # (0.0-0.2) K/mcL Sodium (136-145) mEq/L Potassium (3.5-5.1) mEq/L Chloride (98-107) mEq/L Carbon Dioxide (23-29) mEq/L BUN (8-23) mg/dL Creatinine (0.70-1.30) mg/dL Est GFR ( Amer) (> 60) Est GFR (Non-Af Amer) (> 60) BUN/Creatinine Ratio (6-26) Glucose (70-105) mg/dL Calculated Osmolality (280-300) Lactic Acid 1.9 (0.5-2.2) mmol/L Calcium (8.6-10.3) mg/dL Total Bilirubin 0.4 (0.3-1.0) mg/dL Direct Bilirubin 0.1 (0.0-0.2) mg/dL Indirect Bilirubin 0.3 (0.0-1.2) mg/dL AST 21 (13-39) Units/L ALT 29 (7-52) Units/L Alkaline Phosphatase 96 (34-104) Units/L Troponin I (< 0.04) ng/mL Serum Total Protein 7.4 (6.4-8.9) g/dL Albumin 4.1 (3.5-5.7) g/dL Globulin 3.3 (2.4-3.5) g/dL Albumin/Globulin Ratio 1.2 (1.1-2.2) Lipase 38 (11-82) Units/L Urine Color (Yellow) Urine Clarity (Clear) Urine pH (5.0-8.0) pH Units Ur Specific [place] (1.010-1.025) Urine Protein (Neg-Trace) mg/dL Urine Glucose (UA) (Normal) mg/dL Urine Ketones (Negative) mg/dL Urine Blood (Negative) Urine Nitrite (Negative) Urine Bilirubin (Negative) Urine Urobilinogen (Normal) mg/dL Ur Leukocyte Esterase (Negative) Ur Culture Indicated? (NO) Blood Type Antibody Screen 01/28/19 01/28/19 01/28/19 Range/Units 12:46 12:46 14:29 WBC 11.0 (4.3-11.1) K/mcL RBC 3.70 L (4.19-5.50) M/mcL Hgb 9.4 L D (12.9-16.9) g/dL Hct 29.6 L (37.5-50.1) % MCV 80.0 L (83.0-100.0) fL MCH 25.4 L (28.0-33.3) pg MCHC 31.8 (31.6-35.5) g/dL RDW 14.5 (11.5-14.5) % Plt Count 358 (140-400) K/mcL MPV 10.7 (9.4-12.4) fL Immature Gran % 0.5 (0-4) % Seg Neutrophils % 79.8 % Lymphocytes % 13.7 % Monocytes % 5.3 % Eosinophils % 0.4 % Basophils % 0.3 % Neutrophils # 8.8 (1.6-8.9) K/mcL Lymphocytes # 1.5 (0.6-4.6) K/mcL Monocytes # 0.6 (0.0-1.3) K/mcL Eosinophils # 0.0 (0.0-0.6) K/mcL Basophils # 0.0 (0.0-0.2) K/mcL Sodium 135 L (136-145) mEq/L Potassium 4.1 (3.5-5.1) mEq/L Chloride 101 (98-107) mEq/L Carbon Dioxide 24 (23-29) mEq/L BUN 25 H (8-23) mg/dL Creatinine 0.87 (0.70-1.30) mg/dL Est GFR ( Amer) > 60 (> 60) Est GFR (Non-Af Amer) > 60 (> 60) BUN/Creatinine Ratio 29 H (6-26) Glucose 158 H (70-105) mg/dL Calculated Osmolality 288 (280-300) Lactic Acid (0.5-2.2) mmol/L Calcium 9.4 (8.6-10.3) mg/dL Total Bilirubin (0.3-1.0) mg/dL Direct Bilirubin (0.0-0.2) mg/dL Indirect Bilirubin (0.0-1.2) mg/dL AST (13-39) Units/L ALT (7-52) Units/L Alkaline Phosphatase (34-104) Units/L Troponin I < 0.03 (< 0.04) ng/mL Serum Total Protein (6.4-8.9) g/dL Albumin (3.5-5.7) g/dL Globulin (2.4-3.5) g/dL Albumin/Globulin Ratio (1.1-2.2) Lipase (11-82) Units/L Urine Color Yellow (Yellow) Urine Clarity Clear (Clear) Urine pH 6.0 (5.0-8.0) pH Units Ur Specific [place] 1.029 H (1.010-1.025) Urine Protein Trace (Neg-Trace) mg/dL Urine Glucose (UA) Normal (Normal) mg/dL Urine Ketones Negative (Negative) mg/dL Urine Blood Negative (Negative) Urine Nitrite Negative (Negative) Urine Bilirubin Negative (Negative) Urine Urobilinogen Normal (Normal) mg/dL Ur Leukocyte Esterase Negative (Negative) Ur Culture Indicated? NO (NO) Blood Type Antibody Screen 01/28/19 Range/Units 14:30 WBC (4.3-11.1) K/mcL RBC (4.19-5.50) M/mcL Hgb (12.9-16.9) g/dL Hct (37.5-50.1) % MCV (83.0-100.0) fL MCH (28.0-33.3) pg MCHC (31.6-35.5) g/dL RDW (11.5-14.5) % Plt Count (140-400) K/mcL MPV (9.4-12.4) fL Immature Gran % (0-4) % Seg Neutrophils % % Lymphocytes % % Monocytes % % Eosinophils % % Basophils % % Neutrophils # (1.6-8.9) K/mcL Lymphocytes # (0.6-4.6) K/mcL Monocytes # (0.0-1.3) K/mcL Eosinophils # (0.0-0.6) K/mcL Basophils # (0.0-0.2) K/mcL Sodium (136-145) mEq/L Potassium (3.5-5.1) mEq/L Chloride (98-107) mEq/L Carbon Dioxide (23-29) mEq/L BUN (8-23) mg/dL Creatinine (0.70-1.30) mg/dL Est GFR ( Amer) (> 60) Est GFR (Non-Af Amer) (> 60) BUN/Creatinine Ratio (6-26) Glucose (70-105) mg/dL Calculated Osmolality (280-300) Lactic Acid (0.5-2.2) mmol/L Calcium (8.6-10.3) mg/dL Total Bilirubin (0.3-1.0) mg/dL Direct Bilirubin (0.0-0.2) mg/dL Indirect Bilirubin (0.0-1.2) mg/dL AST (13-39) Units/L ALT (7-52) Units/L Alkaline Phosphatase (34-104) Units/L Troponin I (< 0.04) ng/mL Serum Total Protein (6.4-8.9) g/dL Albumin (3.5-5.7) g/dL Globulin (2.4-3.5) g/dL Albumin/Globulin Ratio (1.1-2.2) Lipase (11-82) Units/L Urine Color (Yellow) Urine Clarity (Clear) Urine pH (5.0-8.0) pH Units Ur Specific [place] (1.010-1.025) Urine Protein (Neg-Trace) mg/dL Urine Glucose (UA) (Normal) mg/dL Urine Ketones (Negative) mg/dL Urine Blood (Negative) Urine Nitrite (Negative) Urine Bilirubin (Negative) Urine Urobilinogen (Normal) mg/dL Ur Leukocyte Esterase (Negative) Ur Culture Indicated? (NO) Blood Type O POSITIVE Antibody Screen NEGATIVE - Radiology Data Radiology results reviewed: Yes I reviewed the patient's radiology results. Critical Care Time Critical Care Time: No
[2019-01-28 13:09] LABS: Basophils % 0.3 %; Eosinophils % 0.4 %; Hematocrit 29.6 % (37.5-50.1); Immature Granulocytes % 0.5 % (0-4); Lymphocytes # 1.5 K/mcL (0.6-4.6); Lymphocytes % 13.7 %; Mean Corpuscular HGB Conc 31.8 g/dL (31.6-35.5); Mean Corpuscular Hemoglobin 25.4 pg (28.0-33.3); Mean Platelet Volume 10.7 fL (9.4-12.4); Monocytes # 0.6 K/mcL (0.0-1.3); Monocytes % 5.3 %; Neutrophils # 8.8 K/mcL (1.6-8.9); Platelet Count 358 K/mcL (140-400); Red Cell Distribution Width 14.5 % (11.5-14.5); Segmented Neutrophils % 79.8 %
[2019-01-28 13:13] LABS: Hemoglobin 9.4 g/dL (12.9-16.9)
[2019-01-28 13:37] LABS: Albumin 4.1 g/dL (3.5-5.7); Albumin/Globulin Ratio 1.2 (1.1-2.2); Bilirubin,Direct 0.1 mg/dL (0.0-0.2); Bilirubin,Indirect 0.3 mg/dL (0.0-1.2); Bilirubin,Total 0.4 mg/dL (0.3-1.0); Globulin 3.3 g/dL (2.4-3.5); Total Protein 7.4 g/dL (6.4-8.9)
[2019-01-28 13:38] LABS: BUN/Creatinine Ratio 29 (6-26); Blood Urea Nitrogen 25 mg/dL (8-23); Calcium 9.4 mg/dL (8.6-10.3); Carbon Dioxide 24 mEq/L (23-29); Chloride 101 mEq/L (98-107); Glucose 158 mg/dL (70-105); Osmolality,Calculated 288 (280-300); Potassium 4.1 mEq/L (3.5-5.1); Sodium 135 mEq/L (136-145); Troponin I < 0.03 ng/mL (< 0.04); eGFR For African Americans > 60 (> 60); eGFR For Non-African Americans > 60 (> 60)
[2019-01-28] MEDS ORDERED: cefTRIAXone 2,000 MG in Water for inj. (sterile) 20 ML IVP ONE (14:10)
[2019-01-28] MEDS ORDERED: Isovue-370 500 ML BOTTLE IVP ONE ×3 (14:22→15:50)
[2019-01-28 14:54] LABS: Bilirubin,Urine Negative (Negative); Blood,Urine Negative (Negative); Clarity,Urine Clear (Clear); Color,Urine Yellow (Yellow); Glucose,Urine (UA) Normal (Normal); Ketones,Urine Negative (Negative); Leukocyte Esterase,Urine Negative (Negative); Nitrite,Urine Negative (Negative); Protein,Urine Trace mg/dL (Neg-Trace); Specific Gravity,Urine 1.029 (1.010-1.025); Urobilinogen,Urine Normal (Normal)
--- NOTE | 2019-01-28 15:41 | Internal Med History&Physical ---
<Wilber Martinez M - Last Filed: 01/28/19 18:01> Date of Encounter: 01/28/19 Time of Encounter: 15:40 Internal Medicine - H&P: HPI Chief complaint: Chest pain Admitted From: Home Plans for Post Hospital Care: Home History of present illness: Mr. Khalil is a 63 year old male w/PMHx of CVA, TIA x 8, left carotid endarectomy, DVT, NIDDM, HTN, anxiety, s/p repair of right iliac aneurysm who presented to [facility] for complaints of chest pain. The patient reports left sided non-radiating chest pain that began this morning at 10:15AM while he was at his PCPs office. Pain described as sharp, stabbing. While at his PCPs office this morning he also developed bloody stools, mild headache, lightheadedness, and o ccasional blurry vision. EKG was performed at that time and revealed no significant ST elevations or depressions but the patient was tachycardic with a self reported HR of 152. EMS was called to the office with concern of acute ACS and pt was transported to [facility] On admission: WBC 11, Hgb 9.4, MCV 80, PT 12.6, PTT 36.5, troponin <0.03. He was treated with IV fluid bolus with some improvement in pain and decrease in HR, CTA of chest and abd/pelvis were performed and revealed 50% stenosis of left subclavian, however no acute process was noted. 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 He denied hematochezia and melena at that time. Blood cultures were obtained and revealed Salmonella enteritidis w/vogel-sensitivity. Plan was to follow-up with PCP for continuation of care. It was determined to manage the patient with endovascular repair of the right iliac aneurysm and surgery was performed on 01/14/19. Pre-op antibiotics included ceftazadime. Surgery was uneventful, pt was started on ASA and Plavix, recovered in stable condition, and he was discharged same day 01/14/19. Since 01/14/19 the patient developed bloody diarrhea and stools that progressively worsened with occasional abdominal pain. He returned to the ED on 01/16/19 with complaints of rectal bleeding and groin pain. CTA was performed at that time and was WNL. Stool occult blood was positive and stool culture was reported to be obtained although I was unable to locate results. Patient was discharged home in stable condition with plans to follow up for colonoscopy. Patient continued to complain of abdominal discomfort and bloody stools. PCP recommended that the patient return to ED on 01/19/19 and ordered repeat blood cultures. The patient did not go at that time. Repeat blood cultures were finally collected on 01/25/19, currently awaiting results. Pt then returned to the ED on 01/26/19 and discharged on 10 days of Bactrim. Past Med Surg Social Fam HX - Past Medical History Medical history: arthritis, CVA, DVT, diabetes, GERD, glaucoma, hypertension Additional medical history: CVA per pt is actually (mini strokes) Psychiatric history: anxiety, depression - Past Surgical History Surgical History: appendectomy Additional surgical history: back surgery, endovascular repair of right iliac aneurysm, left carotid endocardectomy, AAA - Social History Smoking Status: Former smoker Smokeless Tobacco Status: No Alcohol use: none Drug use: none - Family History Mother Living Status: Hx Family Endocrine Disorder: Yes (DM) Father Living Status: Internal Medicine - H&P: Meds ALPRAZolam [Xanax 0.5 MG Tablet] 0.5 mg PO BID PRN 05/28/18 [History] Albuterol Sulfate [Ventolin Hfa] 2 puff PO Q6H PRN 05/28/18 [History] Esomeprazole Magnesium [Nexium] 40 mg PO DAILY 05/28/18 [History] Metformin HCl [Glumetza] 1,000 mg PO BID 05/28/18 [History] Tramadol HCl/Acetaminophen [Ultracet Tablet] 1 tab PO BID PRN 05/28/18 [History] Gemfibrozil [Lopid] 600 mg PO BIDWM tablet 05/29/18 [Rx] Benzonatate [Tessalon] 100 mg PO TID PRN #12 capsule 01/10/19 [Rx] Aspirin [Adult Aspirin] 81 mg PO DAILY 01/14/19 [History] Cholecalciferol (D-3) [Vitamin D] 5,000 unit PO DAILY 01/14/19 [History] Losartan Potassium [Cozaar] 50 mg PO DAILY 01/14/19 [History] Rosuvastatin [Crestor] 40 mg PO HS 01/14/19 [History] Clopidogrel [Plavix] 75 mg PO DAILY #30 tablet 01/15/19 [Rx] Ondansetron HCl [Zofran] 4 mg PO Q8HR PRN 01/28/19 [History] Allergy/AdvReac Type Severity Reaction Status Date / Time codeine AdvReac Itching Verified 01/26/19 18:06 morphine AdvReac Nausea Verified 01/26/19 18:06 All Systems PM: A 10-system review of systems was performed and is negative for pertinent findings except as documented above in the HPI. - Constitutional Constitutional: fatigue, weakness, no chills, no fever(s) - EENT Eyes: blurry vision, no loss of vision, no photophobia, no tunnel vision Ears: no decreased hearing, no tinnitus Nose, mouth and throat: no dysphagia, no facial pain, no odynophagia - Cardiovascular Cardiovascular ROS IM: chest pain (left sided), dyspnea, lightheadedness, no diaphoresis, no palpitations, no syncope - Respiratory Respiratory: dyspnea, no cough, no hemoptysis, no wheezing, no stridor - Gastrointestinal Gastrointestinal: abdominal pain, diarrhea, hematochezia, no fecal incontinence, no nausea, no vomiting - Genitourinary Genitourinary ROS male: no dysuria, no flank pain, no urinary incontinence - Musculoskeletal Musculoskeletal ROS IM: back pain, muscle weakness, stiffness - Integumentary Integumentary IM: no new lesions, no rash, no sores - Neurological Neurological ROS: dizziness, headache(s), no abnormal movements, no abnormal speech, no confusion, no paresthesias, no tremor(s) - Psychiatric Psychiatric: anxiety (historically), depression (historically) - Endocrine Endocrine IM: no cold intolerance, no excessive sweating, no heat intolerance - Hematologic/Lymphatic Hematologic/Lymphatic: no easy bleeding, no easy bruising - Allergic/Immunologic Allergic/Immunologic: no throat swelling, no wheezing - Constitutional Vitals: Temp Pulse Resp BP Pulse Ox 98.3 F 110 18 127/94 99 01/28/19 12:00 01/28/19 14:50 01/28/19 14:50 01/28/19 14:50 01/28/19 14:50 General appearance: Present: A&O X 3, pleasant, no acute distress Exam: see below - Head Head exam: Present: atraumatic, normocephalic - Eye Eye exam: Present: EOMI, PERRL, conjuntiva pink, sclera anicteric Pupils: Present: PERRL - ENT ENT exam: Present: mucous membranes moist, normal oropharynx - Neck Neck exam general surgery: Present: normal inspection, supple, trachea midline. Absent: lymphadenopathy, tenderness, thyromegaly - Respiratory Respiratory exam: Present: CTAB. Absent: rales, respiratory distress, rhonchi, stridor, wheezes - Cardiovascular Cardiovascular exam: Present: +S1, +S2, tachycardia. Absent: diastolic murmur, distant heart sounds, irregular rhythm, JVD, systolic murmur - GI/Abdominal GI/Abdominal exam: Present: normal bowel sounds, soft, tenderness (mild-moderate tenderness of bilateral lower quadrants). Absent: distended, firm, rebound, rigid - Extremities Exam Extremities exam: Present: warm. Absent: calf tenderness, cyanotic, pedal edema, tenderness - Neurological Exam Neurological exam: Present: CN II-XII intact, reflexes normal, no focal deficits. Absent: motor sensory deficit, facial droop, speech deficit - Psychiatric Psychiatric exam: Present: normal affect, normal mood - Skin Skin exam: Present: dry, warm. Absent: cyanosis, pallor, rash Internal Med - H&P Results - Labs CBC & Chem 7: 01/28/19 12:46 01/28/19 12:46 Labs: Short CBC 01/28/19 Range/Units 12:46 WBC 11.0 (4.3-11.1) K/mcL Hgb 9.4 L D (12.9-16.9) g/dL Hct 29.6 L (37.5-50.1) % Plt Count 358 (140-400) K/mcL Neutrophils # 8.8 (1.6-8.9) K/mcL BMP 01/28/19 12:46 Sodium 135 L Potassium 4.1 Chloride 101 Carbon Dioxide 24 BUN 25 H Creatinine 0.87 Glucose 158 H Calcium 9.4 Cardiac Enzymes 01/28/19 Range/Units 12:46 Troponin I < 0.03 (< 0.04) ng/mL Liver Function 01/28/19 Range/Units 12:46 Total Bilirubin 0.4 (0.3-1.0) mg/dL Direct Bilirubin 0.1 (0.0-0.2) mg/dL AST 21 (13-39) Units/L ALT 29 (7-52) Units/L Alkaline Phosphatase 96 (34-104) Units/L Albumin 4.1 (3.5-5.7) g/dL Urine 01/28/19 Range/Units 14:29 Urine Color Yellow (Yellow) Urine Clarity Clear (Clear) Urine pH 6.0 (5.0-8.0) pH Units Ur Specific [place] 1.029 H (1.010-1.025) Urine Protein Trace (Neg-Trace) mg/dL Urine Glucose (UA) Normal (Normal) mg/dL - Impressions ITS Impressions Chest X-Ray 01/28/19 12:14 IMPRESSION: No acute process. D/ / Kary Wilcox MD / Kary Wilcox MD Interpreting Provider: Kary Wilcox MD - Assessment and Plan (1) Chest pain Current Visit: Yes Status: Acute Assessment and plan: Patient with chest pain of >8 hours duration. Pain is nonradiating, improved with IVF, ASA, pain meds. Initial troponin <0.03. EKG with tachycardia, non- specific ST changes. CTA of chest negative for PE and dissection. Cardiology c onsulted, agreed to evaluate patient. - Repeat troponin x 3, laboratory monitor. - HR has improved down from 126 to 105. Patient comfortable, endorses some mild left sided chest pain. - Continue ASA 81 mg, statin. - Awaiting cards recs. Qualifiers: Chest pain type: unspecified Qualified Code(s): R07.9 - Chest pain, unspecified (2) Salmonella bacteremia Current Visit: Yes Status: Acute Assessment and plan: Patient with a recent history of right iliac artery anerysm repair and positive salmonella blood cultures sensitive to Rocephin. ID consulted for evaluation, appreciate assistance. 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 - Start Rocephin 2 g IV Q24H per ID recs. - Fecal PCR per ID. - Consult vascular surgery. - Daily CBC, BMP. - Awaiting repeat cultures. (3) Bloody diarrhea Current Visit: Yes Status: Acute Assessment and plan: Patient reports bloody stools of 12 days duration, progressively worsening. Seen in ED on 01/26/19, prescribed PO bactrim w/o improvement in symptoms. Seen at P office this morning and developed another episode of bloody diarrhea, cp, sob, lightheadedness. ID consulted. No recent international travel. - Fecal PCR per ID. - Start IV rocephin 2g. - Awaiting repeat blood cultures. - Hold Plavix at this time. Cont ASA 81 mg. (4) Anemia Current Visit: Yes Status: Acute Assessment and plan: Pt with a Hgb of 9.4 down from 12.2 since onset of bloody diarrhea. Reports lightheadedness, dizziness, sob. PT/PTT elevated. Anemia likely related to bloody stools. - Hold plavix, continue asa. - Daily CBC, continue to monitor. - Consult vascular surgery. Qualifiers: Anemia type: unspecified type Qualified Code(s): D64.9 - Anemia, unspecified (5) Pseudoaneurysm of iliac artery Current Visit: Yes Status: Resolved Assessment and plan: Patient s/p endovascular repair of right iliac artery anerysm on 01/14/19. Blood cultures positive for salmonella on 01/10/19. Pt given pre-op ceftaz. No significant groin pain at this time. Hgb down from 12.2 to 9.4 over the last 12 days. PT/PTT elevated. - Vascular surgery consult per ID. 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 - Acetaminophen/tramadol for pain. - Plavix held at this time, continue ASA 81 mg. (6) Essential hypertension Current Visit: No Status: Chronic Assessment and plan: Pt with only mild elevations in blood pressure since admission. - Continue home meds. 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 Home metformin. Glucose on admission 158. - Sliding scale insulin Q6 TIDWM. - Accuchecks ACHS. - Time Spent With Patient Total time spent is greater than 50% in coordination of care (as documented) at patient's floor/unit and/or counseling patient: Greater than 35 minutes <Porter Lopez - Last Filed: 01/28/19 18:54> Date of Encounter: 01/28/19 Internal Medicine - H&P: HPI History of present illness: Mr. Khalil is a 63 year old male All Systems PM: A 10-system review of systems was performed and is negative for pertinent findings except as documented above in the HPI. - Constitutional Vitals: Temp Pulse Resp BP Pulse Ox 98.3 F 105 18 135/91 98 01/28/19 12:00 01/28/19 16:00 01/28/19 16:00 01/28/19 16:00 01/28/19 16:00 Internal Med - H&P Results - Labs CBC & Chem 7: 01/28/19 12:46 01/28/19 12:46 Labs: Short CBC 01/28/19 Range/Units 12:46 WBC 11.0 (4.3-11.1) K/mcL Hgb 9.4 L D (12.9-16.9) g/dL Hct 29.6 L (37.5-50.1) % Plt Count 358 (140-400) K/mcL Neutrophils # 8.8 (1.6-8.9) K/mcL BMP 01/28/19 12:46 Sodium 135 L Potassium 4.1 Chloride 101 Carbon Dioxide 24 BUN 25 H Creatinine 0.87 Glucose 158 H Calcium 9.4 Cardiac Enzymes 01/28/19 01/28/19 Range/Units 12:46 17:15 Troponin I < 0.03 < 0.03 (< 0.04) ng/mL Liver Function 01/28/19 Range/Units 12:46 Total Bilirubin 0.4 (0.3-1.0) mg/dL Direct Bilirubin 0.1 (0.0-0.2) mg/dL AST 21 (13-39) Units/L ALT 29 (7-52) Units/L Alkaline Phosphatase 96 (34-104) Units/L Albumin 4.1 (3.5-5.7) g/dL Urine 01/28/19 Range/Units 14:29 Urine Color Yellow (Yellow) Urine Clarity Clear (Clear) Urine pH 6.0 (5.0-8.0) pH Units Ur Specific [place] 1.029 H (1.010-1.025) Urine Protein Trace (Neg-Trace) mg/dL Urine Glucose (UA) Normal (Normal) mg/dL - Impressions ITS Impressions Chest X-Ray 01/28/19 12:14 IMPRESSION: No acute process. D/ / Kary Wilcox MD / Kary Wilcox MD Interpreting Provider: Kary Wilcox MD Chest CTA 01/28/19 14:22 IMPRESSION: 1. Previous stenting of the right common iliac artery injury. No pseudoaneurysm or active bleeding. 2. No significant aortic pathology. Mild to moderate atherosclerotic changes, most prevalent in the infrarenal aorta. No aneurysm or dissection. 50% left subclavian artery stenosis. 3. No evidence of pulmonary embolic disease. 4. No acute pulmonary findings. Linear scarring or atelectasis in the lower lobes and lingula. 5. No acute findings within the abdomen or pelvis. D/ / 01/28/2019 17:03:56 Demario Salcido MD / prakash Interpreting Provider: Demario Salcido MD Abdomen/Pelvis CTA 01/28/19 14:25 IMPRESSION: 1. Previous stenting of the right common iliac artery injury. No pseudoaneurysm or active bleeding. 2. No significant aortic pathology. Mild to moderate atherosclerotic changes, most prevalent in the infrarenal aorta. No aneurysm or dissection. 50% left subclavian artery stenosis. 3. No evidence of pulmonary embolic disease. 4. No acute pulmonary findings. Linear scarring or atelectasis in the lower lobes and lingula. 5. No acute findings within the abdomen or pelvis. D/ / 01/28/2019 17:03:56 Demario Salcido MD / prakash Interpreting Provider: Demario Salcido MD - Assessment and Plan (1) Sepsis Current Visit: Yes Status: Acute Qualifiers: Sepsis type: Salmonella Sepsis acute organ dysfunction status: without acute organ dysfunction Qualified Code(s): A02.1 - Salmonella sepsis (2) Salmonella enteritis Current Visit: Yes Status: Acute (3) Salmonella bacteremia Current Visit: Yes Status: Acute (4) Essential hypertension Current Visit: No Status: Chronic (5) Type 2 diabetes mellitus with other circulatory complications Current Visit: No Status: Chronic - Time Spent With Patient Total time spent is greater than 50% in coordination of care (as documented) at patient's floor/unit and/or counseling patient: - Attending Attestation I examined this patient and my medical decision-making was reviewed with the Resident Physician on 01/28/19. I agree with the documented findings, disposition and treatment plan as described except to the extent set forth below. Mr Khalil is 63 y/o male presented to ED due to positive blood cultures and rectal bleeding. Recent diagnosis of salmonella bacteremia. Also recent R iliac stenting. Denies fever. Still with lower abdominal pain. 2-3 bloody BMs daily. Exam Alert. Comfortable Mucus membranes dry Heart tachy No wheeze No peritoneal signs. No edema No rash I/P 1. Salmonella bacteremia - ID help appreciated. IV Rocephin 2. Recent R iliac stenting 3. DM 4. HTN 5. TIAs Further diagnoses as above.
[2019-01-28] MEDS ORDERED: Naloxone 0.4 MG/ML INJ IVP PRN (16:56)
[2019-01-28] MEDS ORDERED: [UNRECOGNIZED DRUG - OTHER] PO PRN (17:01)
[2019-01-28] MEDS ORDERED: Benzonatate 100 MG CAPSULE PO PRN (17:01)
[2019-01-28] MEDS ORDERED: ACETAMINOPHEN PO PRN (17:01)
[2019-01-28] MEDS ORDERED: Ondansetron ODT 4 MG TAB.RAPDIS PO PRN (17:01)
[2019-01-28] MEDS ORDERED: TRAMADOL HCL PO PRN (17:01)
--- NOTE | 2019-01-28 17:27 | Infectious Disease Consult ---
Infectious Disease-Consult - Encounter Date/Time Date of Encounter: 01/28/19 Time of Encounter: 17:16 - Data of Consult Patient: new to practice Reason for consult: Salmonella bacteremia Consult date: 01/28/19 Requesting Physician: Kevin Pichardo Primary Care Provider: Joselo Jerez MD - HPI HPI: Patient is a 63 year Old gentleman who was sent to the emergency department from Dr. Jerez for tachycardia, chest pain and not feeling well earlier today. We are consulted for Salmonella bacteremia. Patient is a 63-year-old gentleman with past medical history mentioned below presented to [place] has an transferred from [facility] for Salmonella bacteremia. Briefly, patient was initially seen in the emergency department at [facility] on 01/10/2019 with abdominal pain in the lower abdomen. At that time patient did not have any sepsis criteria. Patient had a CTA of the abdomen which was read as pseudoaneurysm along the medial and posterior larger of the distal right common iliac artery associated hematoma surrounding the pseudoaneurysm measuring 2.73.62.5 cm. Patient also had blood cultures obtained. Patient was discharged before the cultures were finalized. Patient was evaluated by Dr. booth as an outpatient. 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 01/19/2019 patient was evaluated by his PCP and she was concerned about the Salmonella bacteremia so she recommended repeat cultures. Patient apparently did not get the blood cultures until 01/25/2019. At that time patient was instructed to go to the emergency department for positive blood cultures. Patient was evaluated on 01/26/2019 and was discharged on oral Bactrim. Patient was not feeling any better was having bloody diarrhea and just feeling fatigued and weak. Patient was evaluated today by his PCP and she recommended admitting the patient so she sent him to the emergency department. Since admission, patient has been afebrile, tachycardic and tachypneic care. Hemodynamically stable. Presenting labs revealed a WBC of 11 with 80% neutrophils no bands. BUN/creatinine 25/0.87. Lactic acid 1.9. Normal LFTs. Normal urinalysis. CTA abdomen and pelvis was read as "previous stenting of the right common iliac artery injury. No pseudoaneurysm or active bleeding. No significant aortic pathology. [id number] atherosclerotic changes, most prevalent in the infrarenal aorta. No aneurysm or dissection area 50% left subclavian artery stenosis. No evidence of pulmonary embolic disease. No acute pulmonary findings. Linear scarring of atelectasis in the lower lobe and lingula." Further questioning, patient was born in [place]. 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 Patient denies any travel outside of the in the last 5 years. Patient tells me for Day he went to [place]. Patient does not have a gallbladder. Patient lives with his and grandchild was 8 years old and nobody has any gastroenteritis symptoms in the last month. Patient currently has no animals at home. Denies having any birds or chicken. Denies having any turtles or lizards. - ROS Review of Systems: 10 point review of systems done, negative other for what is mentioned in the history of present illness. - Results CBC & Chem 7: 01/28/19 12:46 01/28/19 12:46 - Exam Vitals: Temp Pulse Resp BP Pulse Ox 98.3 F 105 18 135/91 98 01/28/19 12:00 01/28/19 16:00 01/28/19 16:00 01/28/19 16:00 01/28/19 16:00 Exam: GENERAL: Laying in bed, appears comfortable. HEAD: Normocephalic atraumatic EYES: PERRLA, EOMI, no conjunctival hemorrhage, sclera anicteric. ENT: Mucous membranes moist, no oral thrush Patient has no teeth and is not wearing dentures NECK: Supple. No meningeal signs. No masses. Scar from left carotid endarterectomy fully healed with no signs of infection LUNGS: Chest expanding symmetrically. Lungs sounds audible both lung riddle. No wheezing, no rhonchi CV: RRR, S1S2, ABDOMEN: Soft, diffuse tenderness significantly worse in the right lower quadrant is also present in the right upper quadrant and left upper quadrant. Negative Myers sign. BACK: No CVA tenderness. Normal inspection. No tenderness over the spine EXTREMITY: Adequate perfusion. No joint effusion. SKIN: Normal color. No rash. NEURO: Awake alert oriented 3. No obvious focal deficit PSYCH: Calm and appropriate. No agitation. ALPRAZolam [Xanax 0.5 MG Tablet] 0.5 mg PO BID PRN 05/28/18 [History] Albuterol Sulfate [Ventolin Hfa] 2 puff PO Q6H PRN 05/28/18 [History] Esomeprazole Magnesium [Nexium] 40 mg PO DAILY 05/28/18 [History] Metformin HCl [Glumetza] 1,000 mg PO BID 05/28/18 [History] Tramadol HCl/Acetaminophen [Ultracet Tablet] 1 tab PO BID PRN 05/28/18 [History] Gemfibrozil [Lopid] 600 mg PO BIDWM tablet 05/29/18 [Rx] Benzonatate [Tessalon] 100 mg PO TID PRN #12 capsule 01/10/19 [Rx] Aspirin [Adult Aspirin] 81 mg PO DAILY 01/14/19 [History] Cholecalciferol (D-3) [Vitamin D] 5,000 unit PO DAILY 01/14/19 [History] Losartan Potassium [Cozaar] 50 mg PO DAILY 01/14/19 [History] Rosuvastatin [Crestor] 40 mg PO HS 01/14/19 [History] Clopidogrel [Plavix] 75 mg PO DAILY #30 tablet 01/15/19 [Rx] Ondansetron HCl [Zofran] 4 mg PO Q8HR PRN 01/28/19 [History] Allergy/AdvReac Type Severity Reaction Status Date / Time codeine AdvReac Itching Verified 01/26/19 18:06 morphine AdvReac Nausea Verified 01/26/19 18:06 - Assessment and Plan (1) Sepsis Current Visit: Yes Status: Acute Patient had 2 SIRS criteria on admission including tachycardia and tachypnea Likely secondary to salmonellosis Qualifiers: Sepsis type: Salmonella Sepsis acute organ dysfunction status: without acute organ dysfunction Qualified Code(s): A02.1 - Salmonella sepsis SNOMED Code(s): 54630851 (2) Salmonella bacteremia Current Visit: Yes Status: Acute Blood culture 01/10/201905/19 set positive Blood culture 01/25/201905/19 set positive Started on oral Bactrim DS 1 tablet twice a day 01/26/2019 by the emergency department Repeat blood cultures 01/28/2019 pending Started on Rocephin 2 g IV every 24 hours 01/28/2019 SNOMED Code(s): 507966057 (3) Bloody diarrhea Current Visit: Yes Status: Acute Likely due to Salmonella gastroenteritis SNOMED Code(s): 76226666 (4) Pseudoaneurysm of iliac artery Current Visit: Yes Status: Acute Diagnosed on CTA 01/10/2019 Status post abdominal aortogram and right iliac artery angiogram and percutane ous endovascular repair of the right common iliac artery aneurysm 01/14/2019 SNOMED Code(s): 78953300 (5) Essential hypertension Current Visit: No Status: Chronic SNOMED Code(s): 95790793 (6) Mixed hyperlipidemia Current Visit: No Status: Chronic SNOMED Code(s): 491604968 (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 We will check Fecal PCR start rocephin 2 grams IV q24 ask vascular surgery to evaluate await repeat cultures monitor labs and for drug toxicity d/w Dr. John Zhu precautions should be fine Past Med Surg Social Fam HX - Past Medical History Medical history: arthritis, CVA, DVT, diabetes, GERD, glaucoma, hypertension Additional medical history: CVA per pt is actually (mini strokes) Psychiatric history: anxiety, depression - Past Surgical History Surgical History: appendectomy Additional surgical history: back surgery, endovascular repair of right iliac aneurysm, left carotid endocardectomy, AAA, knee surgery - Social History Smoking Status: Former smoker Smokeless Tobacco Status: No Alcohol use: none Drug use: none - Family History Mother Living Status: Hx Family Endocrine Disorder: Yes (DM) Father Living Status: Consult Discharge Plan - Plan Referrals: Joselo Jerez MD [Primary Care Provider] -
[2019-01-28] MEDS: Ringers Solution, Lactated 1,000 ML IVC SCH (17:30)
[2019-01-28] MEDS ORDERED: Acetaminophen 325 MG TABLET PO PRN (17:32)
[2019-01-28 17:38] LABS: INR 1.1; Prothrombin Time 12.6 Seconds (9.4-12.1)
[2019-01-28 17:41] LABS: Activated Partial Thrombo Time 36.5 Seconds (26.0-36.0)
[2019-01-28] MEDS ORDERED: *HR* Dextrose 50 % in Water (Syg) 50 ML SYRINGE IVP PRN (17:57)
[2019-01-28] MEDS ORDERED: D5% in Water 1,000 ML IVC PRN (17:57)
[2019-01-28] MEDS ORDERED: Dextrose Gel 15 GM/37.5 ML TUBE PO PRN ×2 (17:57)
[2019-01-28 18:53] LABS: Estimated Average Glucose 177 mg/dl
[2019-01-28] MEDS: Insulin LISPRO 300 UNITS/3 ML VIAL SQ SCH ×2 (20:25→23:31)
[2019-01-28 20:52] LABS: Adenovirus F 40/41 PCR Not detected (Not detect); Astrovirus PCR Not detected (Not detect); C.difficile Toxin A/B Gene PCR Not detected (Not detect); Campylobacter by PCR Not detected (Not detect); Cryptosporidium by PCR Not detected (Not detect); Cyclospora cayetanensis PCR Not detected (Not detect); E. coli O157 by PCR Not detected (Not detect); Entamoeba histolytica PCR Not detected (Not detect); Enteroaggregative E.coli(EAEC) Not detected (Not detect); Enteropathogenic E.coli(EPEC) Not detected (Not detect); Enterotoxigenic E.coli (ETEC) Not detected (Not detect); Giardia lamblia PCR Not detected (Not detect); Norovirus GI/GII PCR Not detected (Not detect); Plesiomonas shigelloides PCR Not detected (Not detect); Rotavirus A PCR Not detected (Not detect); Salmonella PCR Not detected (Not detect); Sapovirus PCR Not detected (Not detect); Shig/EnteroinvasiveE coli EIEC Not detected (Not detect); Shigalike tox-prod E coli STEC Not detected (Not detect); Vibrio PCR Not detected (Not detect); Vibrio cholerae PCR Not detected (Not detect); Yersinia enterocolitica PCR Not detected (Not detect)
[2019-01-29] MEDS: Ringers Solution, Lactated 1,000 ML IVC SCH ×2 (02:42→19:52)
[2019-01-29 03:08] LABS: Basophils % 0.3 %; Eosinophils # 0.1 K/mcL (0.0-0.6); Hematocrit 22.8 % (37.5-50.1); Immature Granulocytes % 0.3 % (0-4); Lymphocytes # 1.5 K/mcL (0.6-4.6); Mean Corpuscular HGB Conc 30.7 g/dL (31.6-35.5); Mean Corpuscular Volume 81.4 fL (83.0-100.0); Mean Platelet Volume 10.9 fL (9.4-12.4); Monocytes # 0.6 K/mcL (0.0-1.3); Monocytes % 9.3 %; Neutrophils # 4.3 K/mcL (1.6-8.9); Platelet Count 289 K/mcL (140-400); Red Cell Distribution Width 14.4 % (11.5-14.5); Segmented Neutrophils % 65.1 %; White Blood Count 6.7 K/mcL (4.3-11.1)
[2019-01-29 03:26] LABS: BUN/Creatinine Ratio 25 (6-26); Blood Urea Nitrogen 20 mg/dL (8-23); Calcium 8.1 mg/dL (8.6-10.3); Carbon Dioxide 26 mEq/L (23-29); Chloride 104 mEq/L (98-107); Glucose 162 mg/dL (70-105); Osmolality,Calculated 288 (280-300); Potassium 4.1 mEq/L (3.5-5.1); Sodium 136 mEq/L (136-145); eGFR For African Americans > 60 (> 60); eGFR For Non-African Americans > 60 (> 60)
[2019-01-29] MEDS: Insulin LISPRO 300 UNITS/3 ML VIAL SQ SCH ×4 (09:09→19:53)
[2019-01-29] MEDS: cefTRIAXone 2,000 MG in Water for inj. (sterile) 20 ML IVP SCH (09:10)
[2019-01-29] MEDS: ALPRAZolam 0.5 MG TABLET PO PRN (09:17)
[2019-01-29] MEDS ORDERED: 0.9 % Sodium Chloride 250 ML ONE ×2 (09:47→15:01)
--- NOTE | 2019-01-29 10:15 | Infectious Disease Progress No ---
ID Progress Note Date of Encounter: 01/29/19 Time of Encounter: 10:13 - Subjective Subjective: Patient seen and examined. No acute events noted overnight. Patient states he feels marginally better this morning. Reports an episode of feeling cold and sweating last night. Denies known fevers or rigors. Reports a headache this morning that he thinks is from his eyestrain because they are dry and itchy because he did not get his glaucoma medication. Denies chest pain, shortness of breath, or cough. Denies nausea, vomiting, or constipation. Reports 2 loose stools that are living like consistency this morning. Denies abdominal pain or urinary complaints. Denies oral thrush or skin rashes. States his appetite is good and he was able to eat his breakfast this morning. - Objective CBC & Chem 7: 02/01/19 03:03 02/01/19 03:03 - Exam Vitals: Temp Pulse Resp BP Pulse Ox 98.5 F 90 16 127/82 97 01/29/19 10:01/29/19 10:01/29/19 10:01/29/19 10:01/29/19 07:54 Exam: Head: Atraumatic, normal inspection, normocephalic. Eye: EOMI, PERRLA, no scleral icterus noted. ENT: Mucous membranes moist. No odontogenic infection noted. Neck: Normal inspection, no meningismus. Respiratory: Clear to auscultation. No rales, respiratory distress, rhonchi, or wheezes noted. Cardiovascular: Regular rate and rhythm, S1 and S2 audible. No murmurs, rubs, or gallops. GI: Soft, nondistended, normal bowel sounds. Nontender. Extremities:No joint swelling, pedal edema, or tenderness noted. Neurological: Alert, oriented 3, no focal deficits. Psychiatric: normal affect, normal mood. Skin: Dry, intact, warm. Normal color. No rashes. - Assessment and Plan (1) Sepsis Current Visit: Yes Status: Resolved Patient had 2 SIRS criteria on admission including tachycardia and tachypnea. Likely secondary to salmonellosis. Improved. Continues to have some intermittent tachycardia, but tachypnea resolved. Blood cultures drawn 11/10/18 were +1 out of 1 sets. Repeat blood cultures drawn 01/25/19 were also +1 out of 1 sets. Additional blood cultures from 01/28/19 are +1 out of 2 sets. Qualifiers: Sepsis type: Salmonella Sepsis acute organ dysfunction status: without acute organ dysfunction Qualified Code(s): A02.1 - Salmonella sepsis SNOMED Code(s): 69751038 (2) Salmonella bacteremia Current Visit: Yes Status: Acute Causative organism: Salmonella enteritidis. Blood culture 01/10/2019 1/ set positive Blood culture 01/25/201905/19 set positive Started on oral Bactrim DS 1 tablet twice a day 01/26/2019 by the emergency department Repeat blood cultures 01/28/2019 are +1 out of 2 sets. Likely secondary to salmonella gastroenteritis. Etiology unclear. Denies having bird or chickens or lizards, or turles and denies known ill contacts. Concern for mycotic aneurysm vs infectious endarteritis vs. other. Started on Rocephin 2 g IV every 24 hours 01/28/2019. SNOMED Code(s): 927098673 (3) Bloody diarrhea Current Visit: Yes Status: Resolved Likely due to Salmonella gastroenteritis, but fecal PCR is negative. Improved per patient report. SNOMED Code(s): 57437732 (4) Anemia Current Visit: Yes Status: Resolved Hgb 7 this morning. Transfusion parameters per the primary team. 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 SNOMED Code(s): 71047346 - Recommendations Recommendations: Repeat blood cultures x 2 sets. Await further recommendations from the vascular team. May need to consider additional imaging to rule out mycotic aneurysm. Continue Rocephin 2 grams IV daily. Duration of treatment depends on the clinical picture. Monitor labs and dose-adjust antibiotics. Standard precautions should be adequate. Consult Discharge Plan - Plan Referrals: Joselo Jerez MD [Primary Care Provider] - - Attending Attestation I have personally performed a face to face evaluation on this patient. I have reviewed and agree with the care plan. History and Exam by me shows: Assessment and plan: 1.Sepsis 2.Salmonella bacteremia 3.Bloody diarrhea 4.Pseudoaneurysm of iliac artery 5.Essential hypertension Recommendations Repeat blood cultures x 2 sets. Await further recommendations from the vascular team. May need to consider additional imaging to rule out mycotic aneurysm. Continue Rocephin 2 grams IV daily. Duration of treatment depends on the clinical picture. Monitor labs and dose-adjust antibiotics. Standard precautions should be adequate.
--- NOTE | 2019-01-29 10:56 | Electrocardiograph Report ---
[place] [id number] Test Date: 2019-01-28 Pat Name: Warner Khalil Department: EXAM14 Room: 2N4 Gender: M [employer] Operator: : [id number] Requested By: Kevin Scherer Order Number: [id number] Reading MD: Sierra Guzmán Measurements Intervals [place] Rate: 118 P: 67 AR: 133 QRS: 84 QRSD: 79 T: 28 QT: 312 QTc: 438 Interpretive Statements Sinus tachycardia Minimal ST depression, inferior leads Electronically Signed On 01-29-2019 10:54:27 EDT by Sierra Guzmán
[2019-01-29] MEDS ORDERED: Artificial Tears SOLN 15 ML BOTTLE BOTH EYES PRN (15:07)
--- NOTE | 2019-01-29 17:55 | Internal Med Progress Note ---
Hospitalist Progress Note - Encounter Date of Encounter: 01/29/19 Time of Encounter: 09:30 - Subjective Interval History: Mr Khalil is currently hospitalized for Salmonella bacteremia and anemia. He remains moderate to high risk due to potential for worsening clinical status. Mr Khalil is very tired and weak. He is dyspneic with exertion. No fever or chills. Blood cx positive from yesterday. No abd pain now. Still with dark watery stool. No CP at this time. - Exam Vitals: Temp Pulse Resp BP Pulse Ox 98.1 F 89 16 123/93 97 01/29/19 17:46 01/29/19 17:46 01/29/19 17:46 01/29/19 17:46 01/29/19 17:46 Exam: General: Alert and oriented. Comfortable at this time. Skin: No rash noted. H: Normocephalic. EENT: EOMI, Mucus membranes moist. Cardiovascular: Normal S1 & S2, Pulse regular. Not tachy currently. Lungs: Normal breath sounds, no wheezes or crackles. Abdomen: Soft, non-tender, Normal bowel sounds. Extremities: No edema noted. Neurological: Normal cognition and motor skills. Pulses: radial pulses normal +2. Rest of the physical exam is non contributory - Assessment and Plan (1) Sepsis Current Visit: Yes Status: Acute Assessment and Plan: Pt currently with Salmonella sepsis. Blood cx remain positive. Recheck cultures tomorrow. (2) Salmonella enteritis Current Visit: Yes Status: Acute Assessment and Plan: Currently on IV Rocephin. Follow H/H. (3) Salmonella bacteremia Current Visit: Yes Status: Acute Assessment and Plan: Repeat cultures tomorrow. (4) Essential hypertension Current Visit: No Status: Chronic Assessment and Plan: Controlled at this time. (5) Type 2 diabetes mellitus with other circulatory complications Current Visit: No Status: Chronic Assessment and Plan: Monitoring blood sugars and covering. (6) Anemia Current Visit: Yes Status: Acute Assessment and Plan: Pt with significant rectal bleeding from Salmonella enteritis. Transfuse today and follow and recheck. - Time Spent with Patient Total time spent is greater than 50% in coordination of care (as documented) at patient's floor/unit and/or counseling patient: Internal Medicine: Result - Labs CBC & Chem 7: 01/29/19 02:05 01/29/19 02:05 Labs: Short CBC 01/29/19 Range/Units 02:05 WBC 6.7 (4.3-11.1) K/mcL Hgb 7.0 L D (12.9-16.9) g/dL Hct 22.8 L (37.5-50.1) % Plt Count 289 (140-400) K/mcL Neutrophils # 4.3 (1.6-8.9) K/mcL BMP 01/29/19 02:05 Sodium 136 Potassium 4.1 Chloride 104 Carbon Dioxide 26 BUN 20 Creatinine 0.80 Glucose 162 H Calcium 8.1 L Cardiac Enzymes 01/28/19 01/28/19 01/29/19 Range/Units 17:15 22:18 05:01 Troponin I < 0.03 < 0.03 < 0.03 (< 0.04) ng/mL - ABG Interpretation ABG results: PT/INR, D-dimer PT 12.6 Seconds (9.4-12.1) H 01/28/19 17:15 - Impressions Impressions Chest CTA 01/28/19 14:22 IMPRESSION: 1. Previous stenting of the right common iliac artery injury. No pseudoaneurysm or active bleeding. 2. No significant aortic pathology. Mild to moderate atherosclerotic changes, most prevalent in the infrarenal aorta. No aneurysm or dissection. 50% left subclavian artery stenosis. 3. No evidence of pulmonary embolic disease. 4. No acute pulmonary findings. Linear scarring or atelectasis in the lower lobes and lingula. 5. No acute findings within the abdomen or pelvis. D/ / 01/28/2019 17:03:56 Demario Salcido MD / prakash Interpreting Provider: Demario Salcido MD Abdomen/Pelvis CTA 01/28/19 14:25 IMPRESSION: 1. Previous stenting of the right common iliac artery injury. No pseudoaneurysm or active bleeding. 2. No significant aortic pathology. Mild to moderate atherosclerotic changes, most prevalent in the infrarenal aorta. No aneurysm or dissection. 50% left subclavian artery stenosis. 3. No evidence of pulmonary embolic disease. 4. No acute pulmonary findings. Linear scarring or atelectasis in the lower lobes and lingula. 5. No acute findings within the abdomen or pelvis. D/ / 01/28/2019 17:03:56 Demario Salcido MD / prakash Interpreting Provider: Demario Salcido MD Echocardiogram 01/28/19 17:06 Impressions: Sinus tachycardia. LVEF 70%. Normal LV chamber size, wall thickness and function. Mild left ventricular diastolic dysfunction. Normal right ventricular structure and function. Mild mitral regurgitation. No evidence of pulmonary hypertension. Left Ventricular Wall Motion: Rest Echo Findings All wall segments showed normal motion. Findings: Study Quality * Technically sub-optimal due to poor echocardiographic windows. ECG Findings * Sinus tachycardia. Left Ventricle * LVEF 70%. * Normal LV chamber size, wall thickness and function. * Mild left ventricular diastolic dysfunction. Right Ventricle * Normal right ventricular structure and function. Left Atrium * Normal left atrial size. Right Atrium * Normal right atrial size. Interatrial Septum * Interatrial septum not well evaluated. Aortic Valve * Aortic valve not well visualized. * No aortic stenosis. * No aortic regurgitation. Mitral Valve * Normal mitral valve structure. * Mild mitral regurgitation. * No mitral stenosis. Tricuspid Valve * Normal tricuspid valve structure and function. * Trace tricuspid regurgitation. * No evidence of pulmonary hypertension. Pulmonic Valve * Pulmonic valve is not well visualized. * No pulmonic regurgitation. Aorta * Normally sized aortic root. Pericardium * The pericardium appears normal. IVC * Normal IVC dimensions and inspiratory collapse. Pulmonary Artery * Normal visualized portions of the main pulmonary artery. Consult Discharge Plan - Plan Referrals: Joselo Jerez MD [Primary Care Provider] - (1) Sepsis Qualifiers: Sepsis type: Salmonella Sepsis acute organ dysfunction status: without acute organ dysfunction Qualified Code(s): A02.1 - Salmonella sepsis (6) Anemia Qualifiers: Anemia type: other cause Other causes of anemia: acute posthemorrhagic Qualified Code(s): D62 - Acute posthemorrhagic anemia
[2019-01-29 18:39] LABS: Hematocrit 30.2 % (37.5-50.1)
[2019-01-29 18:40] LABS: Hemoglobin 9.5 g/dL (12.9-16.9)
[2019-01-29] MEDS: traMADol 50 MG TABLET PO PRN (19:52)
[2019-01-29] MEDS: Latanoprost 2.5 ML BOTTLE BOTH EYES SCH (19:54)
--- NOTE | 2019-01-29 20:28 | Vascular/Endovasc Consult Note ---
Date of Encounter: 01/29/19 Time of Encounter: 16:30 Assessment and Plan (1) Pseudoaneurysm of iliac artery Current Visit: Yes Status: Resolved The patient recently underwent a right common iliac artery aneurysm. His CT scan was reviewed. There is no residual aneurysm. His stent remains in place. His hematoma appears stable. There is no evidence of any gas or that stranding adjacent to the hematoma. His anemia appears unrelated to his recent ps eudoaneurysm. His bacteremia appears unrelated to his recent pseudoaneurysm. Recommend continued intravenous antibiotics. Recommend gastroenterology consultation due to melanotic stool. Discontinue Plavix. (2) Essential hypertension Current Visit: Yes Status: Chronic (3) Mixed hyperlipidemia Current Visit: Yes Status: Chronic (4) Type 2 diabetes mellitus with other circulatory complications Current Visit: Yes Status: Chronic (5) Anemia Current Visit: Yes Status: Acute The patient received packed red blood cells. He is hemodynamically stable. The patient reports melanotic stools. Recommend gastroenterology consultation. The patient's Plavix may be discontinued. Qualifiers: Anemia type: other cause Other causes of anemia: acute posthemorrhagic Qualified Code(s): D62 - Acute posthemorrhagic anemia (6) Salmonella bacteremia Current Visit: Yes Status: Acute Continue with intravenous antibiotics. (7) Carotid stenosis, left Current Visit: No Status: Chronic - History of Present Illness Consult date: 01/29/19 Requesting physician: Porter Lopez Consult reason: Anemia, bacteremia Chief complaint: Anemia History of present illness: Mr. Khalil is a 63 year old male with a history of hypertension, hyperlipidemia, diabetes, carotid stenosis in the right common iliac artery aneurysm. The patient appears presented to [facility] with a right common iliac artery aneurysm with hematoma formation. The patient was taken to the operating room where he underwent a endograft repair of the aneurysm via percutaneous approach. The patient was discharged in stable condition. He presented to the emergency room yesterday with anemia. He is also noted to have a bacteremia. He underwent a CT scan which revealed no evidence of residual pseudoaneurysm. The patient was admitted and vascular surgery was counseled for further evaluation. At the time of the examination, the patient denies abdominal, flank or inguinal pain. He denies any fevers or chills. He denies any chest pain or shortness of breath. Past Med Surg Social Fam HX - Past Medical History Medical history: arthritis, CVA, DVT, diabetes, GERD, glaucoma, hypertension Additional medical history: CVA per pt is actually (mini strokes) Psychiatric history: anxiety, depression - Past Surgical History Surgical History: appendectomy Additional surgical history: back surgery, endovascular repair of right iliac aneurysm, left carotid endocardectomy, AAA, knee surgery - Social History Smoking Status: Former smoker Smokeless Tobacco Status: No Alcohol use: none Drug use: none - Family History Mother Living Status: Hx Family Endocrine Disorder: Yes (DM) Father Living Status: Medications and Allergies ALPRAZolam [Xanax 0.5 MG Tablet] 0.5 mg PO BID PRN 05/28/18 [History] Albuterol Sulfate [Ventolin Hfa] 2 puff PO Q6H PRN 05/28/18 [History] Esomeprazole Magnesium [Nexium] 40 mg PO DAILY 05/28/18 [History] Metformin HCl [Glumetza] 1,000 mg PO BID 05/28/18 [History] Tramadol HCl/Acetaminophen [Ultracet Tablet] 1 tab PO BID PRN 05/28/18 [History] Gemfibrozil [Lopid] 600 mg PO BIDWM tablet 05/29/18 [Rx] Benzonatate [Tessalon] 100 mg PO TID PRN #12 capsule 01/10/19 [Rx] Aspirin [Adult Aspirin] 81 mg PO DAILY 01/14/19 [History] Cholecalciferol (D-3) [Vitamin D] 5,000 unit PO DAILY 01/14/19 [History] Losartan Potassium [Cozaar] 50 mg PO DAILY 01/14/19 [History] Rosuvastatin [Crestor] 40 mg PO HS 01/14/19 [History] Clopidogrel [Plavix] 75 mg PO DAILY #30 tablet 01/15/19 [Rx] Ondansetron HCl [Zofran] 4 mg PO Q8HR PRN 01/28/19 [History] Latanoprost [Xalatan] 1 drop BOTH EYES HS 01/29/19 [History] Allergy/AdvReac Type Severity Reaction Status Date / Time codeine AdvReac Itching Verified 01/26/19 18:06 morphine AdvReac Nausea Verified 01/26/19 18:06 All Systems Review: The remainder of the systems were reviewed and are negative - Constitutional Constitutional: no chills, no fever(s) - Cardiovascular Cardiovascular: no chest pain at rest, no dyspnea at rest Exam Vital Signs, Last 4 Hours Temp Pulse Resp BP Pulse Ox 01/29/19 17:46 98.1 F 89 16 123/93 97 01/29/19 16:38 90 16 137/86 98 General: Present: Conversant, No Apparent Distress Neck: Absent: JVD, Lymphadenopathy Cardiac: Present: Reg Rate and Rhythm, Normal S1 and S2 Lungs: Present: Normal Breath Sounds Neuro: Present: Alert and responsive, No focal deficits noted Abdomen: Present: Soft, Non-tender. Absent: Masses Vascular: Present: Normal capillary refill, Pulse, normal. Absent: Cyanosis, Edema Skin: Present: Other (Right femoral artery access site without erythema, drainage, purulence, fluctuance or pulsatile mass.) Consult Discharge Plan - Plan Referrals: Joselo Jerez MD [Primary Care Provider] -
[2019-01-30 05:27] LABS: Alanine Aminotransferase 26 Units/L (7-52); Albumin 3.4 g/dL (3.5-5.7); Albumin/Globulin Ratio 1.3 (1.1-2.2); Alkaline Phosphatase 76 Units/L (34-104); Aspartate Amino Transferase 20 Units/L (13-39); BUN/Creatinine Ratio 19 (6-26); Bilirubin,Total 0.3 mg/dL (0.3-1.0); Blood Urea Nitrogen 14 mg/dL (8-23); Calcium 8.6 mg/dL (8.6-10.3); Carbon Dioxide 26 mEq/L (23-29); Chloride 103 mEq/L (98-107); Globulin 2.7 g/dL (2.4-3.5); Glucose 186 mg/dL (70-105); Magnesium 1.8 mg/dL (1.6-2.6); Osmolality,Calculated 289 (280-300); Potassium 3.9 mEq/L (3.5-5.1); Sodium 137 mEq/L (136-145); Total Protein 6.1 g/dL (6.4-8.9); eGFR For African Americans > 60 (> 60); eGFR For Non-African Americans > 60 (> 60)
[2019-01-30 05:44] LABS: Hematocrit 26.7 % (37.5-50.1); Hemoglobin 8.6 g/dL (12.9-16.9); Mean Corpuscular HGB Conc 32.2 g/dL (31.6-35.5); Mean Corpuscular Hemoglobin 26.1 pg (28.0-33.3); Mean Corpuscular Volume 80.9 fL (83.0-100.0); Mean Platelet Volume 10.4 fL (9.4-12.4); Platelet Count 279 K/mcL (140-400); Red Cell Distribution Width 14.1 % (11.5-14.5); White Blood Count 7.4 K/mcL (4.3-11.1)
[2019-01-30] MEDS: Ringers Solution, Lactated 1,000 ML IVC SCH (06:10)
[2019-01-30] MEDS: Insulin LISPRO 300 UNITS/3 ML VIAL SQ SCH ×4 (08:00→21:08)
[2019-01-30] MEDS: cefTRIAXone 2,000 MG in Water for inj. (sterile) 20 ML IVP SCH (08:03)
[2019-01-30] MEDS: ALPRAZolam 0.5 MG TABLET PO PRN (08:17)
--- NOTE | 2019-01-30 10:31 | Internal Med Progress Note ---
Hospitalist Progress Note - Encounter Date of Encounter: 01/30/19 Time of Encounter: 10:30 - Subjective Interval History: Mr Khalil is currently admitted for acute salmonella bacteremia. He remains moderate to high risk due to potential for worsening clinical status. Mr Khalil did not sleep well last night. He is still having some dark stool but less frequency. No fever or chills. Blood cx drawn this AM. Abdomen less tender today. - Exam Vitals: Temp Pulse Resp BP Pulse Ox 98.2 F 87 14 135/87 98 01/30/19 07:00 01/30/19 07:00 01/30/19 07:00 01/30/19 07:00 01/30/19 07:00 Exam: General: Alert and oriented. Comfortable at this time. Interactive with me. Skin: No rash noted. H: Normocephalic. EENT: EOMI, Mucus membranes moist. Cardiovascular: Normal S1 & S2, Pulse regular. Not tachy currently. Lungs: Normal breath sounds, no wheezes or crackles. Abdomen: Soft, non-tender, Normal bowel sounds. Extremities: No edema noted. Moves all extremities Neurological: Normal cognition and motor skills. Pulses: radial pulses normal +2. Rest of the physical exam is non contributory - Assessment and Plan (1) Sepsis Current Visit: Yes Status: Acute Assessment and Plan: Pt currently with Salmonella sepsis. Repeat blood cx done this AM. Currently on IV Rocephin. (2) Salmonella enteritis Current Visit: Yes Status: Acute Assessment and Plan: Currently on IV Rocephin. Follow H/H. (3) Salmonella bacteremia Current Visit: Yes Status: Acute Assessment and Plan: Repeat cultures drawn today. (4) Essential hypertension Current Visit: Yes Status: Chronic Assessment and Plan: Controlled at this time. (5) Type 2 diabetes mellitus with other circulatory complications Current Visit: Yes Status: Chronic Assessment and Plan: Uncontrolled at this time. Adjust insulin (6) Anemia Current Visit: Yes Status: Acute Assessment and Plan: Pt with significant rectal bleeding from Salmonella enteritis. Decreased H/H again today. Will recheck tonight and in AM. NPO midnight - if drops again anticipate will need endoscopy. Continue PPI - Time Spent with Patient Total time spent is greater than 50% in coordination of care (as documented) at patient's floor/unit and/or counseling patient: Internal Medicine: Result - Labs CBC & Chem 7: 01/30/19 04:50 01/30/19 04:50 Labs: Short CBC 01/29/19 01/30/19 Range/Units 18:12 04:50 WBC 7.4 (4.3-11.1) K/mcL Hgb 9.5 L D 8.6 L (12.9-16.9) g/dL Hct 30.2 L 26.7 L (37.5-50.1) % Plt Count 279 (140-400) K/mcL BMP 01/30/19 04:50 Sodium 137 Potassium 3.9 Chloride 103 Carbon Dioxide 26 BUN 14 Creatinine 0.73 Glucose 186 H Calcium 8.6 Liver Function 01/30/19 Range/Units 04:50 Total Bilirubin 0.3 (0.3-1.0) mg/dL AST 20 (13-39) Units/L ALT 26 (7-52) Units/L Alkaline Phosphatase 76 (34-104) Units/L Albumin 3.4 L (3.5-5.7) g/dL - ABG Interpretation ABG results: PT/INR, D-dimer PT 12.6 Seconds (9.4-12.1) H 01/28/19 17:15 - Impressions Impressions Echocardiogram 01/28/19 17:06 Impressions: Sinus tachycardia. LVEF 70%. Normal LV chamber size, wall thickness and function. Mild left ventricular diastolic dysfunction. Normal right ventricular structure and function. Mild mitral regurgitation. No evidence of pulmonary hypertension. Left Ventricular Wall Motion: Rest Echo Findings All wall segments showed normal motion. Findings: Study Quality * Technically sub-optimal due to poor echocardiographic windows. ECG Findings * Sinus tachycardia. Left Ventricle * LVEF 70%. * Normal LV chamber size, wall thickness and function. * Mild left ventricular diastolic dysfunction. Right Ventricle * Normal right ventricular structure and function. Left Atrium * Normal left atrial size. Right Atrium * Normal right atrial size. Interatrial Septum * Interatrial septum not well evaluated. Aortic Valve * Aortic valve not well visualized. * No aortic stenosis. * No aortic regurgitation. Mitral Valve * Normal mitral valve structure. * Mild mitral regurgitation. * No mitral stenosis. Tricuspid Valve * Normal tricuspid valve structure and function. * Trace tricuspid regurgitation. * No evidence of pulmonary hypertension. Pulmonic Valve * Pulmonic valve is not well visualized. * No pulmonic regurgitation. Aorta * Normally sized aortic root. Pericardium * The pericardium appears normal. IVC * Normal IVC dimensions and inspiratory collapse. Pulmonary Artery * Normal visualized portions of the main pulmonary artery. Consult Discharge Plan - Plan Referrals: Joselo Jerez MD [Primary Care Provider] - (1) Sepsis Qualifiers: Sepsis type: Salmonella Sepsis acute organ dysfunction status: without acute organ dysfunction Qualified Code(s): A02.1 - Salmonella sepsis (6) Anemia Qualifiers: Anemia type: other cause Other causes of anemia: acute posthemorrhagic Qualified Code(s): D62 - Acute posthemorrhagic anemia
[2019-01-30 17:42] LABS: Hematocrit 31.9 % (37.5-50.1)
[2019-01-30 17:46] LABS: Hemoglobin 10.2 g/dL (12.9-16.9)
[2019-01-30] MEDS ORDERED: Insulin DETEMIR 100 UNIT/ML X5UNITS SQ SCH (21:00)
[2019-01-30] MEDS: Latanoprost 2.5 ML BOTTLE BOTH EYES SCH (21:12)
[2019-01-30] MEDS: traMADol 50 MG TABLET PO PRN (21:22)
[2019-01-31] MEDS: traMADol 50 MG TABLET PO PRN ×2 (05:01→20:34)
[2019-01-31 05:37] LABS: Hematocrit 29.9 % (37.5-50.1); Hemoglobin 9.5 g/dL (12.9-16.9); Mean Corpuscular HGB Conc 31.8 g/dL (31.6-35.5); Mean Corpuscular Volume 81.7 fL (83.0-100.0); Mean Platelet Volume 10.6 fL (9.4-12.4); Platelet Count 307 K/mcL (140-400); Red Blood Count 3.66 M/mcL (4.19-5.50); Red Cell Distribution Width 14.5 % (11.5-14.5); White Blood Count 8.5 K/mcL (4.3-11.1)
[2019-01-31 05:56] LABS: BUN/Creatinine Ratio 23 (6-26); Blood Urea Nitrogen 18 mg/dL (8-23); Carbon Dioxide 28 mEq/L (23-29); Chloride 104 mEq/L (98-107); Glucose 176 mg/dL (70-105); Osmolality,Calculated 294 (280-300); Potassium 4.2 mEq/L (3.5-5.1); Sodium 139 mEq/L (136-145); eGFR For African Americans > 60 (> 60); eGFR For Non-African Americans > 60 (> 60)
[2019-01-31] MEDS: Insulin LISPRO 300 UNITS/3 ML VIAL SQ SCH ×4 (07:39→20:35)
[2019-01-31] MEDS: cefTRIAXone 2,000 MG in Water for inj. (sterile) 20 ML IVP SCH (07:41)
[2019-01-31] MEDS: ALPRAZolam 0.5 MG TABLET PO PRN (07:49)
--- NOTE | 2019-01-31 11:38 | Internal Med Progress Note ---
Hospitalist Progress Note - Encounter Date of Encounter: 01/31/19 Time of Encounter: 11:35 - Subjective Interval History: Mr Khalil is currently admitted for salmonella sepsis. He remains moderate to high risk due to potential for worsening clinical status. Mr Khalil is doing OK. Diarrhea and bleeding has stopped. Blood sugars better with the addition of Lantus last night. No fever or chills. No new issues. - Exam Vitals: Temp Pulse Resp BP Pulse Ox 97.8 F 94 18 121/82 96 01/31/19 07:26 01/31/19 07:26 01/31/19 07:26 01/31/19 07:26 01/31/19 07:26 Exam: General: Alert and oriented. Comfortable at this time. Skin: No rash noted. H: Normocephalic. EENT: EOMI, Mucus membranes moist. Cardiovascular: Normal S1 & S2, Pulse regular. No tachycardia Lungs: Normal breath sounds, Clear bilaterally Abdomen: Soft, non-tender, No mass felt. Extremities: No edema noted. Moves all extremities Neurological: Normal cognition and motor skills. Pulses: radial pulses normal +2. Rest of the physical exam is non contributory - Assessment and Plan (1) Sepsis Current Visit: Yes Status: Resolved Assessment and Plan: Pt currently with Salmonella sepsis. Blood cultures from yesterday negative thus far. Clinically he has improved. (2) Salmonella enteritis Current Visit: Yes Status: Acute Assessment and Plan: Currently on IV Rocephin. Diarrhea has resolved. (3) Salmonella bacteremia Current Visit: Yes Status: Acute Assessment and Plan: Repeat cultures drawn and results pending. (4) Essential hypertension Current Visit: Yes Status: Chronic Assessment and Plan: Controlled at this time. (5) Type 2 diabetes mellitus with other circulatory complications Current Visit: Yes Status: Chronic Assessment and Plan: Blood sugar better with addition of Levemir. Will increase today. (6) Anemia Current Visit: Yes Status: Acute Assessment and Plan: Pt with significant rectal bleeding from Salmonella enteritis. H/H stable from yesterday. Holding any GI work up at this time. - Time Spent with Patient Total time spent is greater than 50% in coordination of care (as documented) at patient's floor/unit and/or counseling patient: Internal Medicine: Result - Labs CBC & Chem 7: 01/31/19 05:07 01/31/19 05:07 Labs: Short CBC 01/30/19 01/31/19 Range/Units 17:29 05:07 WBC 8.5 (4.3-11.1) K/mcL Hgb 10.2 L D 9.5 L (12.9-16.9) g/dL Hct 31.9 L 29.9 L (37.5-50.1) % Plt Count 307 (140-400) K/mcL BMP 01/31/19 05:07 Sodium 139 Potassium 4.2 Chloride 104 Carbon Dioxide 28 BUN 18 Creatinine 0.78 Glucose 176 H Calcium 9.0 - ABG Interpretation ABG results: PT/INR, D-dimer PT 12.6 Seconds (9.4-12.1) H 01/28/19 17:15 Consult Discharge Plan - Plan Referrals: Joselo Jerez MD [Primary Care Provider] - (1) Sepsis Qualifiers: Sepsis type: Salmonella Sepsis acute organ dysfunction status: without acute organ dysfunction Qualified Code(s): A02.1 - Salmonella sepsis (6) Anemia Qualifiers: Anemia type: other cause Other causes of anemia: acute posthemorrhagic Qualified Code(s): D62 - Acute posthemorrhagic anemia
[2019-01-31] MEDS: Latanoprost 2.5 ML BOTTLE BOTH EYES SCH (20:36)
[2019-01-31] MEDS ORDERED: Insulin DETEMIR 100 UNIT/ML X5UNITS SQ SCH (21:00)
[2019-02-01 03:33] LABS: Hematocrit 29.5 % (37.5-50.1); Hemoglobin 9.2 g/dL (12.9-16.9); Mean Corpuscular HGB Conc 31.2 g/dL (31.6-35.5); Mean Corpuscular Hemoglobin 26.5 pg (28.0-33.3); Mean Platelet Volume 10.6 fL (9.4-12.4); Platelet Count 326 K/mcL (140-400); Red Blood Count 3.47 M/mcL (4.19-5.50); Red Cell Distribution Width 14.9 % (11.5-14.5); White Blood Count 7.1 K/mcL (4.3-11.1)
[2019-02-01 03:53] LABS: BUN/Creatinine Ratio 24 (6-26); Blood Urea Nitrogen 21 mg/dL (8-23); Calcium 8.8 mg/dL (8.6-10.3); Carbon Dioxide 29 mEq/L (23-29); Chloride 101 mEq/L (98-107); Glucose 215 mg/dL (70-105); Osmolality,Calculated 289 (280-300); Potassium 4.1 mEq/L (3.5-5.1); Sodium 135 mEq/L (136-145); eGFR For African Americans > 60 (> 60); eGFR For Non-African Americans > 60 (> 60)
[2019-02-01] MEDS: cefTRIAXone 2,000 MG in Water for inj. (sterile) 20 ML IVP SCH (08:25)
[2019-02-01] MEDS: traMADol 50 MG TABLET PO PRN (08:28)
[2019-02-01] MEDS: ALPRAZolam 0.5 MG TABLET PO PRN (08:29)
[2019-02-01] MEDS: Insulin LISPRO 300 UNITS/3 ML VIAL SQ SCH ×3 (08:37→16:20)
--- NOTE | 2019-02-01 10:23 | Discharge Summary ---
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 Khalil is a 63 year old male - Time Spent with Patient Total time spent providing and/or coordinating discharge services: 38min - Discharge Medications Prescriptions: New Ceftriaxone Sodium [Ceftriaxone] 2 gm IV Q24H 9 Days #9 vial.port Cefdinir [Omnicef] 300 mg PO BID 14 Days #28 capsule Continued Albuterol Sulfate [Ventolin Hfa] 2 puff PO Q6H PRN PRN Reason: Shortness Of Breath ALPRAZolam [Xanax 0.5 MG Tablet] 0.5 mg PO BID PRN PRN Reason: Anxiety Esomeprazole Magnesium [Nexium] 40 mg PO DAILY Metformin HCl [Glumetza] 1,000 mg PO BID Tramadol HCl/Acetaminophen [Ultracet Tablet] 1 tab PO BID PRN PRN Reason: Mild To Moderate Pain Gemfibrozil [Lopid] 600 mg PO BIDWM tablet Benzonatate [Tessalon] 100 mg PO TID PRN #12 capsule PRN Reason: Cough Aspirin [Adult Aspirin] 81 mg PO DAILY Cholecalciferol (D-3) [Vitamin D] 5,000 unit PO DAILY Losartan Potassium [Cozaar] 50 mg PO DAILY Rosuvastatin [Crestor] 40 mg PO HS Clopidogrel [Plavix] 75 mg PO DAILY #30 tablet Ondansetron HCl [Zofran] 4 mg PO Q8HR PRN PRN Reason: NAUSEA/VOMITING Latanoprost [Xalatan] 1 drop BOTH EYES HS Home Medications: ALPRAZolam [Xanax 0.5 MG Tablet] 0.5 mg PO BID PRN 05/28/18 [History] Albuterol Sulfate [Ventolin Hfa] 2 puff PO Q6H PRN 05/28/18 [History] Esomeprazole Magnesium [Nexium] 40 mg PO DAILY 05/28/18 [History] Metformin HCl [Glumetza] 1,000 mg PO BID 05/28/18 [History] Tramadol HCl/Acetaminophen [Ultracet Tablet] 1 tab PO BID PRN 05/28/18 [History] Gemfibrozil [Lopid] 600 mg PO BIDWM tablet 05/29/18 [Rx] Benzonatate [Tessalon] 100 mg PO TID PRN #12 capsule 01/10/19 [Rx] Aspirin [Adult Aspirin] 81 mg PO DAILY 01/14/19 [History] Cholecalciferol (D-3) [Vitamin D] 5,000 unit PO DAILY 01/14/19 [History] Losartan Potassium [Cozaar] 50 mg PO DAILY 01/14/19 [History] Rosuvastatin [Crestor] 40 mg PO HS 01/14/19 [History] Clopidogrel [Plavix] 75 mg PO DAILY #30 tablet 01/15/19 [Rx] Ondansetron HCl [Zofran] 4 mg PO Q8HR PRN 01/28/19 [History] Latanoprost [Xalatan] 1 drop BOTH EYES HS 01/29/19 [History] Cefdinir [Omnicef] 300 mg PO BID 14 Days #28 capsule 02/01/19 [Rx] Ceftriaxone Sodium [Ceftriaxone] 2 gm IV Q24H 9 Days #9 vial.port 02/01/19 [Rx] Allergies/Adverse Reactions: Allergy/AdvReac Type Severity Reaction Status Date / Time codeine AdvReac Itching Verified 01/26/19 18:06 morphine AdvReac Nausea Verified 01/26/19 18:06 Date of admission: 01/28/19 17:28 Primary care physician: Joselo Jerez MD Consults: 01/28/19 14:01 Consult to Infectious Diseases [CONS] Stat Consulting Provider: Infectious Disease [place] Reason for Consult: salmonella bacteremia Call Completed: Yes 01/28/19 17:13 Consult to Nutrition [CONS] Routine Comment: Consulting Provider: NUTRITION Reason for Dietary Consult: MST Score 01/29/19 08:58 Consult to Vascular Surgery [CONS] Routine Consulting Provider: Vascular Surgery Lisa Reason for Consult: Recent stent placement Call Completed: Yes 02/01/19 11:34 Consult to Invasive Line Access Team [CONS] Routine Reason for Consult: home atb Line Type: EPIV - Constitutional Vitals: Temp Pulse Resp BP Pulse Ox 98.3 F 94 18 124/85 97 02/01/19 08:09 02/01/19 08:09 02/01/19 08:09 02/01/19 08:09 01/31/19 16:01 - Patient Status Disposition: Home, Self-Care Condition: Good - Ambulatory Orders Ambulatory Orders: Blood Urea Nitrogen (BUN) [CHEM] Time Frame: 1 Week, Facility: [facility], Location: Lab Blood Urea Nitrogen (BUN) [CHEM] Time Frame: 02/08/19, Facility: [facility], Location: Lab Blood Urea Nitrogen (BUN) [CHEM] Time Frame: 02/15/19, Facility: [facility], Location: Lab Blood Urea Nitrogen (BUN) [CHEM] Time Frame: 02/22/19, Facility: [facility], Location: Lab Complete Blood Count [HEME] Time Frame: 1 Week, Facility: [facility], Location: Lab Complete Blood Count [HEME] Time Frame: 02/08/19, Facility: [facility], Location: Lab Complete Blood Count [HEME] Time Frame: 02/15/19, Facility: [facility], Location: Lab Complete Blood Count [HEME] Time Frame: 02/22/19, Facility: [facility], Location: Lab Creatinine [CHEM] Time Frame: 1 Week, Facility: [facility], Location: Lab Creatinine [CHEM] Time Frame: 02/08/19, Facility: [facility], Location: Lab Creatinine [CHEM] Time Frame: 02/15/19, Facility: [facility], Location: Lab Creatinine [CHEM] Time Frame: 02/22/19, Facility: [facility], Location: Lab - Discharge Instructions Follow Up With: Joselo Jerez MD [Primary Care Provider] - 02/08/19 2:15 pm Rhona Grimes MD [Partnered Physician] - 02/15/19 10:30 am Additional Instructions: 1 place shelly glide Continue Rocephin 2 g IV every 24 hours through 02/11/2019 Followed by Omnicef 300 mg by mouth twice a day through 02/25/2019 Plan to repeat blood cultures 2 weeks after the antibiotics are stopped Monitor weekly CBC, BUN and creatinine Patient instructed to call us if he becomes symptomatic again Follow-up with Dr. Grimes in infectious disease clinic on 02/15/2019 at 10:30 AM It is important that you maintain adequate hydration and caloric intake while at home. - Attending Attestation I examined this patient and my medical decision-making was reviewed with the Resident Physician on 02/01/19. I agree with the documented findings, disposition and treatment plan as described except to the extent set forth below. Mr Khalil has been admitted for acute salmonella bacteremia. He has improved with IV abx. Repeat cx now negative. No fever or chills. He is ready for discharge to complete IV abx. Exam Alert. Comfortable NC. Mucus membranes dry. Neck supple Heart not tachy. No wheeze abd soft Pain L calf - no swelling Plan D/C with IV abx. Follow up with ID. <Wilber Martinez - Last Filed: 02/01/19 15:49> - NOTES TO OUTPATIENT PROVIDER Notes to Outpatient Provider: Mr. Khalil was seen for acute chest pain and 2 week history of bloody stools secondary to salmonella bacteremia. Cardiology workup was negative for ACS or ischemia. Infectious disease was consulted and patient was started on 2 grams IV rocephin Q24H. His symptoms impoved on hospital day 3 with resolution in his bloody diarrhea and abdominal pain on hospital day 5-6. Plan is to discharge on IV Rocephin until 02/11/19 for a total of 2 weeks and transition to oral antibiotics on 02/12/19 for additional 2 weeks. Orders not resulted at time of discharge: Pending orders 01/28/19 12:37 Culture,Blood [BC] Stat 01/30/19 05:28 Culture,Blood [BC] Routine Date of Encounter: 02/01/19 Time of Encounter: 10:21 - Discharge Diagnosis (1) Chest pain Priority: Primary Status: Resolved Assessment and Plan: Patient with acute episode of chest pain and sob with tachycardia. EKG negative for ST changes and ischemia. Symptoms resolved with IVF resuscitation and resolution of anemia. Etiology likely secondary to blood loss and diarrhea from salmonella infection. - Follow-up with PCP. Qualifiers: Chest pain type: unspecified Qualified Code(s): R07.9 - Chest pain, unspecified (2) Salmonella bacteremia Priority: Primary Status: Acute Assessment and Plan: Patient was seen and treated for salmonella bacteremia with IV Rocephin. Patient improved considerably on hospital day 4 although he endorsed some continued weakness. Patient able to be discharged at this time. - Paraglide insertion. - Plan is to continue Rocephin 2g IV until 02/11/19 for a total of 2 weeks. - Intend to transition to PO antibiotics for additional 2 weeks. - F/U with Dr. Grimes and PCP. (3) Bloody diarrhea Priority: Secondary Status: Resolved Assessment and Plan: Bloody diarrhea secondary to salmonella bacteremia has resolved at this time. Will be discharged on IV rocephin. (4) Anemia Priority: Secondary Status: Resolved Assessment and Plan: Patient with anemia secondary to bloody diarrhea and salmonella bacteremia. Bloody diarrhea has resolved. - Monitor with PCP follow-up. Qualifiers: Anemia type: other cause Other causes of anemia: acute posthemorrhagic Qualified Code(s): D62 - Acute posthemorrhagic anemia (5) Pseudoaneurysm of iliac artery Priority: Secondary Status: Resolved Assessment and Plan: No concern for mycotic aneurysm at this time. - PCP and infectious disease follow up. (6) Essential hypertension Priority: Secondary Status: Chronic Assessment and Plan: Stable at this time. - PCP follow up (7) Type 2 diabetes mellitus with other circulatory complications Priority: Secondary Status: Chronic Assessment and Plan: Follow up with PCP (8) Severe protein-calorie malnutrition Priority: Secondary Status: Resolved Assessment and Plan: Patient was assessed by nutrition and evaluation revealed severe [place] calorie malnutrition secondary to acute salmonella bacteremia. Patient had >2% wt loss for one week and moderate temporal muscle wasting. - Continue to maintain adequate hydration and calorie intake. - ADA diet with strawberry ensures. Hospital course: Mr. Khalil is a 63 year old male w/PMHx of CVA, TIA x 8, left carotid endarectomy, DVT, NIDDM, HTN, anxiety, s/p repair of right iliac aneurysm who presented to [facility] for complaints of chest pain, bloody stools, lightheadedness. Pt was sent from his PCP office with symptoms. EKG was performed at that time and revealed no significant ST elevations or depressions but the patient was tachycardic. EMS was called to the office with concern of acute ACS and pt was transported to [facility]. On admission: WBC 11, Hgb 9.4, MCV 80, PT 12.6, PTT 36.5, troponin <0.03. He was treated with IV fluid bolus with some improvement in pain and decrease in HR, CTA of chest and abd/pelvis were performed and revealed 50% stenosis of left subclavian, however no acute process was noted. Patient was seen on 01/14/19 for endovascular repair of the right iliac aneurysm. Since 01/14/19 the patient has had chronic bloody diarrhea. Blood cultures at that time were positive for salmonella enteriditis and patient was discharge, later seen in the ED on 01/26/19 on PO bactrim without improvement. At admission there was concern for salmonella bacteremia and infectious disease was consulted and patient was started on Rocephin 2 g IV every 24 hours. Vascular surgery was consulted and recommended discontinuation of Plavix while admitted. Improvement in appetite and reduction of bloody stools was evident on hospital day 3. On hospital day 5, the patient reported complete resolution in bloody diarrhea and abdominal pain. Plan per infectious disease is to continue IV Rocephin until 02/11/19 with transition to oral antibiotics for additional 2 weeks. Discharge discussed with: patient, family - Time Spent with Patient Total time spent providing and/or coordinating discharge services: Time spent: Greater than 30 minutes Date of admission: 01/28/19 17:28 Primary care physician: Joselo Jerez MD Consults: 01/28/19 14:01 Consult to Infectious Diseases [CONS] Stat Consulting Provider: Infectious Disease [place] Reason for Consult: salmonella bacteremia Call Completed: Yes 01/28/19 17:13 Consult to Nutrition [CONS] Routine Comment: Consulting Provider: NUTRITION Reason for Dietary Consult: MST Score 01/29/19 08:58 Consult to Vascular Surgery [CONS] Routine Consulting Provider: Vascular Surgery [place] Reason for Consult: Recent stent placement Call Completed: Yes Discharging clinician: Wilber Martinez Anticipated date of discharge: 02/01/19 - Constitutional Vitals: Temp Pulse Resp BP Pulse Ox 98.3 F 94 18 124/85 97 02/01/19 08:09 02/01/19 08:09 02/01/19 08:09 02/01/19 08:09 01/31/19 16:01 General appearance: Present: A&O X 3, pleasant, no acute distress Exam: see below - Head Head exam: Present: atraumatic, normocephalic - Eye Eye exam: Present: EOMI, PERRL, conjuntiva pink - ENT ENT exam: Present: mucous membranes moist, normal oropharynx - Neck Neck exam general surgery: Present: normal inspection, supple, trachea midline - Respiratory Respiratory exam: Present: CTAB. Absent: rales, rhonchi, stridor, wheezes - Cardiovascular Cardiovascular exam: Present: RRR, +S1, +S2. Absent: diastolic murmur, JVD, systolic murmur - GI/Abdominal GI/Abdominal exam: Present: normal bowel sounds, soft. Absent: guarding, hepatomegaly, rigid, tenderness - Extremities Exam Extremities exam: Present: calf tenderness (mild lower calf, likely MSK etiology), full ROM, warm. Absent: joint swelling, pedal edema - Neurological Exam Neurological exam: Present: CN II-XII intact. Absent: no focal deficits, speech deficit - Psychiatric Psychiatric exam: Present: normal affect, normal mood - Skin Skin exam: Present: normal color. Absent: erythema, pallor, rash - Patient Status Functional capacity at discharge: independent ambulation Overall status at discharge: patient is progressing back to baseline - Diet and Activity Activity: increase activity as tolerated Diet: advance to your usual diet
--- NOTE | 2019-02-01 11:47 | Electrocardiograph Report ---
[address] [address] Test Date: 2019-01-28 Pat Name: Warner Khalil Department: EXAM14 Room: 2N4 Gender: M Physical Medicine Specialist: : [id number] Requested By: Jesus Varghese Order Number: [id number] Reading MD: Mynor Livingston Measurements Intervals [place] Rate: 103 P: 66 ND: 133 QRS: 85 QRSD: 87 T: 42 QT: 332 QTc: 435 Interpretive Statements Sinus tachycardia Borderline right axis deviation Electronically Signed On 02-01-2019 11:45:57 EDT by Mynor Livingston
--- NOTE | 2019-02-01 15:20 | Infectious Disease Progress No ---
ID Progress Note Date of Encounter: 02/01/19 Time of Encounter: 15:15 - Subjective Subjective: Patient seen and examined. Clinically doing significantly much better. No fevers no chills. at bedside. Denies any chest pain. Has good appetite. No cough. Patient denies any abdominal pain. Continues to have bowel movements but now he tells me they are formed and he does not see any blood. No urinary symptoms. Vital signs reviewed Cultures reviewed Labs noted - Objective CBC & Chem 7: 02/01/19 03:03 02/01/19 03:03 - Exam Vitals: Temp Pulse Resp BP Pulse Ox 98.3 F 94 18 124/85 97 02/01/19 08:09 02/01/19 08:09 02/01/19 08:09 02/01/19 08:09 01/31/19 16:01 Exam: GENERAL: Comfortable. Laying in bed NAD HEENT: NANCY, EOMI LUNGS: Good air sounds bilaterally, no wheezing or rhonchi CV: RRR, S1 S2 ABDOMEN: Soft, nontender, + bowel sounds EXT: Adequate perfusion. No edema NEURO: A&OX3; no focal deficit - Assessment and Plan (1) Sepsis Current Visit: Yes Status: Resolved Patient had 2 SIRS criteria on admission including tachycardia and tachypnea. Likely secondary to salmonellosis. Improved. Continues to have some intermittent tachycardia, but tachypnea resolved. Blood cultures drawn 11/10/18 were +1 out of 1 sets. Repeat blood cultures drawn 01/25/19 were also +1 out of 1 sets. Additional blood cultures from 01/28/19 are +1 out of 2 sets. Qualifiers: Qualified Code(s): A02.1 - Salmonella sepsis SNOMED Code(s): 30504512 (2) Salmonella bacteremia Current Visit: Yes Status: Acute Causative organism: Salmonella enteritidis. Blood culture 01/10/201905/19 set positive Blood culture 01/25/201905/19 set positive Started on oral Bactrim DS 1 tablet twice a day 01/26/2019 by the emergency department Repeat blood cultures 01/28/2019 are +1 out of 2 sets. Repeat cultures of the blood 01/30/2019 2/2 sets no growth to date Stool PCR negative for Salmonella Etiology unclear. Denies having bird or chickens or lizards, or turles and denies known ill contacts. Concern for mycotic aneurysm vs infectious endarteritis vs. other. Started on Rocephin 2 g IV every 24 hours 01/28/2019. SNOMED Code(s): 255280854 (3) Bloody diarrhea Current Visit: Yes Status: Resolved Likely due to Salmonella gastroenteritis, but fecal PCR is negative. Improved per patient report. SNOMED Code(s): 08000927 (4) Anemia Current Visit: Yes Status: Resolved Hgb 7 this morning. Transfusion parameters per the primary team. Qualifiers: Qualified Code(s): D62 - Acute posthemorrhagic anemia SNOMED Code(s): 416729359 (5) Essential hypertension Current Visit: Yes Status: Chronic SNOMED Code(s): 72326858 (6) Mixed hyperlipidemia Current Visit: Yes Status: Chronic SNOMED Code(s): 034001511 (7) Type 2 diabetes mellitus with other circulatory complications Current Visit: Yes Status: Chronic SNOMED Code(s): 39979290, 75418626, 811092429 (8) Pseudoaneurysm of iliac artery Current Visit: Yes Status: Resolved Diagnosed on CTA 01/10/2019 Status post abdominal aortogram and right iliac artery angiogram and percutaneous 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 SNOMED Code(s): 41666639 - Recommendations Recommendations: 1 place power glide Continue Rocephin 2 g IV every 24 hours through 02/11/2019 Followed by Omnicef 300 mg by mouth twice a day through 02/25/2019 Plan to repeat blood cultures 2 weeks after the antibiotics are stopped Monitor weekly CBC, BUN and creatinine Patient instructed to call us if he becomes symptomatic again Patient needs follow-up with me in clinic on 02/15/2019 at 10:30 AM Consult Discharge Plan - Plan Additional Instructions: You are being discharged with an invasive line for IV antibiotics. You will be receiving IV antibiotics at home for 2 weeks and transitioned to oral antibiotics for an additional 2 weeks. You will follow-up with Dr. Grimes at [place] [facility]. It is important that you maintain adequate hydration and food intake while at home. If you have continued/worsening bloody stools, nausea, vomiting, chest pain, fevers or chills please call 911 or go to the nearest emergency department immediately. Referrals: Joselo Jerez MD [Primary Care Provider] - Rhona Grimes MD [Partnered Physician] -
[2019-02-01 16:01] VITALS: BP 106/77
--- NOTE | 2019-02-02 08:39 | Physician Discharge Referral ---
Home Health/Hosp Referral Info Transfer to: Home Health Provider in Charge Post Discharge: PCP - Diagnosis (1) Sepsis Priority: Primary Status: Resolved (2) Salmonella enteritis Priority: Secondary Status: Resolved (3) Salmonella bacteremia Priority: Secondary Status: Acute (4) Essential hypertension Priority: Secondary Status: Chronic (5) Type 2 diabetes mellitus with other circulatory complications Priority: Secondary Status: Chronic (6) Anemia Priority: Secondary Status: Resolved (7) Severe protein-calorie malnutrition Priority: Secondary Status: Resolved - Respiratory Orders None Smoking Cessation: Smoking cessation has been advised. For more information, call the [place] [employer] Mobile Quit Line at 7-879-ZIQR-NOW. - Diet/Nutrition Diet/Nutrition Orders: No Concentrated Sweets - Activity Activity Orders: Up ad dain - Services Needed Following services are medically necessary services: Nursing, Home Infusion - Transfer Medications Prescriptions: Ceftriaxone Sodium [Ceftriaxone] 2 gm IV Q24H 9 Days #9 vial.port Prescription Printed Cefdinir [Omnicef] 300 mg PO BID 14 Days #28 capsule Transmission Status: Received by [id number] Home Medications: ALPRAZolam [Xanax 0.5 MG Tablet] 0.5 mg PO BID PRN 05/28/18 [History] Albuterol Sulfate [Ventolin Hfa] 2 puff PO Q6H PRN 05/28/18 [History] Esomeprazole Magnesium [Nexium] 40 mg PO DAILY 05/28/18 [History] Metformin HCl [Glumetza] 1,000 mg PO BID 05/28/18 [History] Tramadol HCl/Acetaminophen [Ultracet Tablet] 1 tab PO BID PRN 05/28/18 [History] Gemfibrozil [Lopid] 600 mg PO BIDWM tablet 05/29/18 [Rx] Benzonatate [Tessalon] 100 mg PO TID PRN #12 capsule 01/10/19 [Rx] Aspirin [Adult Aspirin] 81 mg PO DAILY 01/14/19 [History] Cholecalciferol (D-3) [Vitamin D] 5,000 unit PO DAILY 01/14/19 [History] Losartan Potassium [Cozaar] 50 mg PO DAILY 01/14/19 [History] Rosuvastatin [Crestor] 40 mg PO HS 01/14/19 [History] Clopidogrel [Plavix] 75 mg PO DAILY #30 tablet 01/15/19 [Rx] Ondansetron HCl [Zofran] 4 mg PO Q8HR PRN 01/28/19 [History] Latanoprost [Xalatan] 1 drop BOTH EYES HS 01/29/19 [History] Cefdinir [Omnicef] 300 mg PO BID 14 Days #28 capsule 02/01/19 [Rx] Ceftriaxone Sodium [Ceftriaxone] 2 gm IV Q24H 9 Days #9 vial.port 02/01/19 [Rx] Allergies/Adverse Reactions: Allergy/AdvReac Type Severity Reaction Status Date / Time codeine AdvReac Itching Verified 01/26/19 18:06 morphine AdvReac Nausea Verified 01/26/19 18:06 Certification: Further, I certify that my clinical findings support that this patient is homebound (i.e. absences from home require considerable and taxing effort and are for medical reasons or evangelical services or infrequently or short duration when for other reasons) because: Homebound Reason: Leaving home requires considerable and taxing effort due to condition Attestation: My signature below is to certify that this patient is under my care and that I, or nurse practitioner, or a physician's human resources assistant manager working with me, has a [id number] encounter with this patient.
== END 2019-02-01 18:03 | disposition home or self-care (01) | DRG 871 ==
LOC: EMEROOARM 11:56 → 2NENU 11:56 → SUATTDRO 17:28
PROVIDERS: ADMIT Internal Medicine; ATTEND Internal Medicine

== ENCOUNTER 2020-02-25 09:13 | Observation (INO) ==
[2020-02-25] MEDS ORDERED: methylPREDNISolone 125 MG/2 ML VIAL IVP ONE (09:55)
[2020-02-25] MEDS ORDERED: Ipratropium/Albuterol Neb 3 ML IH ONE (09:55)
[2020-02-25 10:14] LABS: INR 1.1; Prothrombin Time 12.7 Seconds (9.4-12.1)
[2020-02-25 10:16] LABS: Basophils % 0.3 %; Eosinophils # 0.1 K/mcL (0.0-0.6); Eosinophils % 0.7 %; Hematocrit 47.2 % (37.5-50.1); Hemoglobin 14.9 g/dL (12.9-16.9); Immature Granulocytes % 0.4 % (0-4); Lymphocytes % 25.3 %; Mean Corpuscular HGB Conc 31.6 g/dL (31.6-35.5); Mean Corpuscular Hemoglobin 26.7 pg (28.0-33.3); Mean Corpuscular Volume 84.4 fL (83.0-100.0); Mean Platelet Volume 12.2 fL (9.4-12.4); Monocytes # 0.8 K/mcL (0.0-1.3); Monocytes % 6.8 %; Neutrophils # 7.9 K/mcL (1.6-8.9); Platelet Count 261 K/mcL (140-400); Red Blood Count 5.59 M/mcL (4.19-5.50); Red Cell Distribution Width 13.7 % (11.5-14.5); Segmented Neutrophils % 66.5 %; White Blood Count 11.8 K/mcL (4.3-11.1)
[2020-02-25 10:17] LABS: Activated Partial Thrombo Time 32.6 Seconds (26.0-36.0)
[2020-02-25 10:48] LABS: BUN/Creatinine Ratio 28 (6-26); Blood Urea Nitrogen 27 mg/dL (8-23); Calcium 10.6 mg/dL (8.6-10.3); Carbon Dioxide 24 mEq/L (23-29); Chloride 99 mEq/L (98-107); Glucose 242 mg/dL (70-105); Osmolality,Calculated 297 (280-300); Potassium 3.6 mEq/L (3.5-5.1); Sodium 137 mEq/L (136-145); Troponin I < 0.03 ng/mL (< 0.04); eGFR For African Americans > 60 (> 60); eGFR For Non-African Americans > 60 (> 60)
[2020-02-25] MEDS ORDERED: Aspirin 81 MG TAB.CHEW PO STA (12:00)
[2020-02-25] MEDS ORDERED: *HR* Promethazine 25 MG/ML VIAL IVP PRN (13:02)
[2020-02-25] MEDS ORDERED: *HR* Dextrose 50 % in Water (Vial) 50 ML VIAL IVP PRN (13:34)
[2020-02-25] MEDS ORDERED: D5% in Water 1,000 ML IVC PRN (13:34)
[2020-02-25] MEDS ORDERED: Dextrose Gel 15 GM/37.5 ML TUBE PO PRN ×2 (13:34)
[2020-02-25] MEDS: Ipratropium/Albuterol Neb 3 ML IH SCH ×3 (15:57→23:01)
[2020-02-25] MEDS: Azithromycin 500 MG in 0.9 % Sodium Chloride 250 ML IVPB SCH (16:37)
[2020-02-25] MEDS: Insulin LISPRO 300 UNITS/3 ML VIAL SQ SCH ×2 (16:38→21:02)
[2020-02-26 00:41] LABS: Hematocrit 41.2 % (37.5-50.1); Hemoglobin 13.1 g/dL (12.9-16.9); Mean Corpuscular HGB Conc 31.8 g/dL (31.6-35.5); Mean Corpuscular Hemoglobin 26.4 pg (28.0-33.3); Mean Corpuscular Volume 83.1 fL (83.0-100.0); Mean Platelet Volume 12.2 fL (9.4-12.4); Platelet Count 243 K/mcL (140-400); Red Blood Count 4.96 M/mcL (4.19-5.50); White Blood Count 12.5 K/mcL (4.3-11.1)
[2020-02-26 00:58] LABS: BUN/Creatinine Ratio 33 (6-26); Blood Urea Nitrogen 32 mg/dL (8-23); Calcium 9.7 mg/dL (8.6-10.3); Carbon Dioxide 26 mEq/L (23-29); Chloride 101 mEq/L (98-107); Glucose 230 mg/dL (70-105); Osmolality,Calculated 300 (280-300); Potassium 3.8 mEq/L (3.5-5.1); Sodium 138 mEq/L (136-145); eGFR For African Americans > 60 (> 60); eGFR For Non-African Americans > 60 (> 60)
[2020-02-26] MEDS ORDERED: Acetaminophen 325 MG TABLET PO ONE (02:10)
[2020-02-26] MEDS: Ipratropium/Albuterol Neb 3 ML IH SCH ×6 (04:36→23:19)
[2020-02-26] MEDS ORDERED: *HR* Enoxaparin 40 MG/0.4 ML SYRINGE SQ SCH (06:00)
[2020-02-26] MEDS: predniSONE 20 MG TABLET PO SCH (08:57)
[2020-02-26] MEDS: Insulin LISPRO 300 UNITS/3 ML VIAL SQ SCH ×4 (08:57→20:37)
[2020-02-26 13:41] LABS: Hematocrit 41.4 % (37.5-50.1); Hemoglobin 13.2 g/dL (12.9-16.9)
[2020-02-26] MEDS: Azithromycin 500 MG in 0.9 % Sodium Chloride 250 ML IVPB SCH (15:07)
[2020-02-26] MEDS ORDERED: ALPRAZolam 0.5 MG TABLET PO PRN (16:09)
[2020-02-26] MEDS: gemfibroziL 600 MG TABLET PO SCH (16:53)
[2020-02-26] MEDS: Gabapentin 400 MG CAPSULE PO SCH (20:35)
[2020-02-27] MEDS: Ipratropium/Albuterol Neb 3 ML IH SCH ×6 (03:16→23:35)
[2020-02-27 03:29] LABS: Basophils % 0.3 %; Eosinophils % 0.2 %; Hematocrit 38.1 % (37.5-50.1); Immature Granulocytes % 0.4 % (0-4); Lymphocytes # 2.9 K/mcL (0.6-4.6); Lymphocytes % 21.8 %; Mean Corpuscular HGB Conc 31.5 g/dL (31.6-35.5); Mean Corpuscular Hemoglobin 26.6 pg (28.0-33.3); Mean Corpuscular Volume 84.5 fL (83.0-100.0); Mean Platelet Volume 12.6 fL (9.4-12.4); Monocytes # 1.1 K/mcL (0.0-1.3); Monocytes % 8.1 %; Neutrophils # 9.1 K/mcL (1.6-8.9); Platelet Count 221 K/mcL (140-400); Red Blood Count 4.51 M/mcL (4.19-5.50); Red Cell Distribution Width 13.9 % (11.5-14.5); Segmented Neutrophils % 69.2 %; White Blood Count 13.2 K/mcL (4.3-11.1)
[2020-02-27 03:47] LABS: BUN/Creatinine Ratio 28 (6-26); Blood Urea Nitrogen 24 mg/dL (8-23); Calcium 9.3 mg/dL (8.6-10.3); Carbon Dioxide 28 mEq/L (23-29); Chloride 103 mEq/L (98-107); Glucose 202 mg/dL (70-105); Osmolality,Calculated 298 (280-300); Potassium 3.5 mEq/L (3.5-5.1); Sodium 139 mEq/L (136-145); eGFR For African Americans > 60 (> 60); eGFR For Non-African Americans > 60 (> 60)
[2020-02-27] MEDS: predniSONE 20 MG TABLET PO SCH (07:49)
[2020-02-27] MEDS: gemfibroziL 600 MG TABLET PO SCH ×2 (07:49→17:22)
[2020-02-27] MEDS: Gabapentin 400 MG CAPSULE PO SCH ×3 (07:49→20:09)
[2020-02-27] MEDS: Insulin LISPRO 300 UNITS/3 ML VIAL SQ SCH ×4 (07:49→17:16)
[2020-02-27] MEDS ORDERED: Lidocaine -MPF 2% 2 ML VIAL ONE (10:04)
[2020-02-27] MEDS ORDERED: *HR* Propofol 200 MG/20 ML VIAL IVP ONE (11:31)
[2020-02-27] MEDS: Azithromycin 500 MG in 0.9 % Sodium Chloride 250 ML IVPB SCH (14:57)
[2020-02-27] MEDS ORDERED: Insulin LISPRO 300 UNITS/3 ML VIAL SQ SCH (21:00)
[2020-02-28] MEDS: Ipratropium/Albuterol Neb 3 ML IH SCH ×2 (03:43→07:48)
[2020-02-28 04:46] LABS: Basophils % 0.2 %; Eosinophils % 0.3 %; Hematocrit 39.2 % (37.5-50.1); Hemoglobin 12.3 g/dL (12.9-16.9); Immature Granulocytes % 0.6 % (0-4); Lymphocytes % 27.5 %; Mean Corpuscular HGB Conc 31.4 g/dL (31.6-35.5); Mean Platelet Volume 11.9 fL (9.4-12.4); Monocytes # 0.7 K/mcL (0.0-1.3); Monocytes % 6.7 %; Platelet Count 213 K/mcL (140-400); Red Blood Count 4.56 M/mcL (4.19-5.50); Red Cell Distribution Width 13.8 % (11.5-14.5); Segmented Neutrophils % 64.7 %; White Blood Count 10.8 K/mcL (4.3-11.1)
[2020-02-28 07:56] VITALS: BP 135/86
== END 2020-02-28 09:42 | disposition home or self-care (01) ==
LOC: EMEROOARM 09:13 → 3BNU 09:13
PROVIDERS: ADMIT Internal Medicine; ATTEND Internal Medicine